=== PATIENT | male | born 1935 | race Caucasian/White ===

== ENCOUNTER 2022-11-29 05:18 | Inpatient (IN) ==
--- NOTE | 2022-11-29 05:34 | Emergency Department Note ---
History of Present Illness General Chief complaint: Chest Pain Stated complaint: CHEST PAIN, PAIN IN MARIUM ARMS, Time Seen by Provider: 11/29/22 05:32 History of Present Illness Maximum Pain Intensity: 10 This 87-year-old male patient presents to the emergency department with his and son for evaluation of chest pain since 4 am this morning. He states that he woke up to go to the bathroom and then the pain started. He reports retrosternal chest pain with radiation into his bilateral arms. He rates the pain as a pressure and 10/10 initially that then improved to 3/10 and then re turned to 7/10. Laying down makes the pain worse. He had a similar episode 3 days ago that resolved after belching multiple times. He has never had chest pain prior to 3 days ago. No history of MO or heart problems other than history of LBBB. He does not follow up with a emergency registrar. Last stress test or ECHO was about 20 years ago. He is adopted and does not know his family history. No heart problems in his children. He has never been a smoker. Drinks one alcoholic beverage a week. He denies any shortness of breath or diaphoresis. Denies any cough, URI symptoms, or fevers. Denies any abdominal pain, nausea, or vomiting. Took 3 Tums for the symptoms without improvement. He is not on aspirin and did not take any aspirin today. He is not on any blood thinners. He is not on any medication for erectile dysfunction. Remote history of GI bleeding many years ago per patient, but he is not very clear on the specifics. Home Medications Medication Instructions Recorded Confirmed Type ascorbic acid (vitamin C) 1,000 mg 1,000 mg PO QAM 03/23/19 10/01/22 History tablet,extended release mecobalamin (vitamin B12) 1,000 1,000 mcg sublingual QAM 03/23/19 10/01/22 History mcg disintegrating tablet,sublingual atorvastatin 10 mg tablet 10 mg PO QAM 10/11/19 10/01/22 History calcium carbonate 600 mg calcium 600 mg PO QAM 10/11/19 10/01/22 History (1,500 mg) tablet cholecalciferol (vitamin D3) 25 1,000 unit PO QAM 10/11/19 10/01/22 History mcg (1,000 unit) capsule (Vitamin D3) diltiazem HCl 180 mg capsule,24 180 mg PO QAM 10/11/19 10/01/22 History hr,extended release lisinopril 20 1 tab PO QAM 10/11/19 10/01/22 History mg-hydrochlorothiazide 25 mg tablet [id number] acid 0.4 1 tab PO QAM 10/11/19 10/01/22 History mg-lycopene 300 mcg-lutein 250 mcg tablet (Centrum Silver) pyridoxine (vitamin B6) 25 mg 25 mg PO DAILY 09/26/20 10/01/22 History tablet acetaminophen 500 mg capsule 500 mg PO Q6H PRN 09/27/21 10/01/22 History Allergies Allergy/AdvReac Type Severity Reaction Status Date / Time No Known Allergies Allergy Verified 10/01/22 14:13 Past Med/Surg History Medical History Chronic back pain Hearing deficit Hyperlipidemia Hypertension Prostate cancer (04/27/02) Rectal bleeding Surgical History History of appendectomy History of colonoscopy with polypectomy History of prostate biopsy x2---malignat: 2001 and then again in 2018 (radiation) History of prostatectomy 2001 History of tonsillectomy and adenoidectomy History of tooth extraction Status post debridement of bone spur x2--bilt feet (hardware in left foot) Status post trigger finger release left hand Family History Other Family history not known due to adoption Social History Smoking Status: Never smoker Second Hand Exposure: Yes (parents smoked); Hx Alcohol Use: Yes Alcohol type: beer, wine and hard liquor Hx Substance Use: No Preferred Language: German Communication Ability: Effective Quality Assurance Qa Lab Analyst Required: No Beliefs That Will Affect Care: [facility] Current Living Situation: Spouse Feels Safe at Home: Yes Assistive Devices: Glasses and Hearing Aid - Bilateral Review of Systems See HPI for pertinent positives & negatives. Physical Exam Vital Signs Vital Signs - 24 hr 11/29/22 05:26 11/29/22 05:53 11/29/22 06:00 Temperature 36.0 C L Temperature Source Temporal Artery Scan Pulse Rate 76 Pulse Rate [Apical] 71 Pulse Rate from SpO2 Sensor Pulse Rhythm Regular Pulse Strength Normal Respiratory Rate 18 13 Respiratory Effort / Characteristics Non-Labored Spontaneous Respiratory Depth Normal Normal Respiratory Pattern Regular Blood Pressure 179/84 H Blood Pressure [Left Arm] 172/91 H Blood Pressure Mean 115 Blood Pressure Mean [Left Arm] 118 Blood Pressure Position Sitting Pulse Oximetry 99 97 97 Oxygen Delivery Method Room Air Room Air Sepsis Recent Fever Within 48 Hours No Sepsis New/Unexplained Change in Mental Status No Sepsis Action Taken by Nursing No Action Required 11/29/22 05:36 11/29/22 05:41 11/29/22 05:41 Temperature Temperature Source Pulse Rate 80 79 Pulse Rate [Apical] Pulse Rate from SpO2 Sensor 75 Pulse Rhythm Pulse Strength Respiratory Rate 21 24 Respiratory Effort / Characteristics Respiratory Depth Respiratory Pattern Blood Pressure 172/91 H Blood Pressure [Left Arm] Blood Pressure Mean 118 Blood Pressure Mean [Left Arm] Blood Pressure Position Pulse Oximetry 98 Oxygen Delivery Method Sepsis Recent Fever Within 48 Hours Sepsis New/Unexplained Change in Mental Status Sepsis Action Taken by Nursing 11/29/22 06:00 11/29/22 06:09 11/29/22 06:09 Temperature Temperature Source Pulse Rate 75 67 Pulse Rate [Apical] Pulse Rate from SpO2 Sensor 73 Pulse Rhythm Pulse Strength Respiratory Rate 18 14 Respiratory Effort / Characteristics Respiratory Depth Respiratory Pattern Blood Pressure 170/82 H Blood Pressure [Left Arm] Blood Pressure Mean 111 Blood Pressure Mean [Left Arm] Blood Pressure Position Pulse Oximetry 98 Oxygen Delivery Method Sepsis Recent Fever Within 48 Hours Sepsis New/Unexplained Change in Mental Status Sepsis Action Taken by Nursing 11/29/22 06:30 11/29/22 06:39 11/29/22 06:50 Temperature Temperature Source Pulse Rate 78 61 72 Pulse Rate [Apical] Pulse Rate from SpO2 Sensor Pulse Rhythm Pulse Strength Respiratory Rate 12 10 L 10 L Respiratory Effort / Characteristics Respiratory Depth Respiratory Pattern Blood Pressure 146/75 H 138/64 120/70 Blood Pressure [Left Arm] Blood Pressure Mean 98 88 86 Blood Pressure Mean [Left Arm] Blood Pressure Position Pulse Oximetry 95 96 Oxygen Delivery Method Sepsis Recent Fever Within 48 Hours Sepsis New/Unexplained Change in Mental Status Sepsis Action Taken by Nursing 11/29/22 07:34 11/29/22 07:55 Temperature Temperature Source Pulse Rate Pulse Rate [Apical] 83 70 Pulse Rate from SpO2 Sensor Pulse Rhythm Pulse Strength Respiratory Rate 18 18 Respiratory Effort / Characteristics Non-Labored Spontaneous Non-Labored Respiratory Depth Normal Normal Respiratory Pattern Regular Regular Blood Pressure Blood Pressure [Left Arm] 132/99 133/89 Blood Pressure Mean Blood Pressure Mean [Left Arm] 110 103 Blood Pressure Position Pulse Oximetry 97 97 Oxygen Delivery Method Room Air Room Air Sepsis Recent Fever Within 48 Hours Sepsis New/Unexplained Change in Mental Status Sepsis Action Taken by Nursing VITALS: Vitals are noted on the nurse's note and reviewed by myself. GENERAL: Non toxic, no acute distress, non-diaphoretic. SKIN: Capillary refill <2 sec. EARS: External auditory canals clear, tympanic membranes pearly strickland without erythema or effusion bilaterally. EYES: PERRLA. EOMI. Conjunctivae without injection, sclerae without icterus. NOSE: Patent without discharge. MOUTH: Mucous membranes moist. Uvula midline. Airway patent. NECK: Supple without nuchal rigidity. HEART: Regular rate and rhythm without murmurs gallops or rubs. LUNGS: Clear to auscultation bilaterally without wheezes, rales or rhonchi. No retractions or accessory muscle use. ABDOMEN: Positive bowel sounds x 4. Normal tympanic percussion. Soft, nontender, without masses or organomegaly. Barrera sign negative. No guarding or rebound tenderness. No focal RLQ or LLQ tenderness. MUSCULOSKELETAL: No gross musculoskeletal defects. NEURO: Patient was alert and oriented to person place and time. No focal neurological deficits. Course Administered Medications Nitroglycerin (Nitroglycerin Sl 0.4 Mg/Tab Tab) 0.4 mg SL UD PRN PRN Reason: Chest Pain Stop: 12/29/22 05:48 Last Admin: 11/29/22 06:48 Dose: 0.4 mg Documented By: Admin: 11/29/22 06:30 Dose: 0.4 mg Documented By: CHRIS Discontinued Medications Aspirin (Aspirin Chew 324 Mg) 324 mg PO NOW STA Stop: 11/29/22 05:50 Last Admin: 11/29/22 05:59 Dose: 324 mg Documented By: CHRIS Fentanyl Citrate (Fentanyl Citrate 100 Mcg/2 Ml Vial) 50 mcg IV NOW STA Stop: 11/29/22 07:00 Last Admin: 11/29/22 07:07 Dose: 50 mcg Documented By: MARGARITO Sodium Chloride (Nss) 500 mls @ 250 mls/hr IV .Q2H STA Stop: 11/29/22 07:48 Last Admin: 11/29/22 05:59 Dose: 250 mls/hr Documented By: CHRIS Ioversol (Optiray 350 100ml) 88 ml IV ONCE ONE Stop: 11/29/22 07:30 Last Admin: 11/29/22 07:29 Dose: 88 ml Documented By: FRANCES Medical Decision Making Differential Diagnosis Differential diagnosis includes angina, MO, pericarditis, myocarditis, aortic dissection, pleurisy, pneumothorax, PE, pneumonia, pneumomediastinum, esophagitis, esophageal spasm, GERD, perforated esophagus, perforated duodenal/gastric ulcer, pancreatitis, cholecystitis, costochondritis, musculoskeletal, bronchitis, URI, or others. Laboratory Data Attestation: I reviewed the patient's lab results. 11/29/22 05:40 11/29/22 05:40 Lab Results 11/29/22 11/29/22 11/29/22 Range/Units 05:40 05:40 05:40 WBC 8.07 (4.8-10.8) K/ul RBC 4.30 L (4.63-6.08) M/uL Hgb 13.8 L (14.0-18.0) g/dl Hct 39.5 L (40.1-51.0) % MCV 91.9 (80.0-100.0) fL MCH 32.1 (25.0-34.0) pg MCHC 34.9 (32.0-36.0) g/dL RDW Std Deviation 44.4 (36.4-46.3) fL RDW Coeff of [place] 13.2 (11.5-14.5) % Plt Count 353 (130-400) K/uL MPV 8.6 L (9.4-12.4) fL Immature Gran % (Auto) 0.5 % Neut % (Auto) 63.0 % Lymph % (Auto) 23.9 % [place] % (Auto) 7.7 % Eos % (Auto) 4.3 % Baso % (Auto) 0.6 % Neut # (Auto) 5.08 (1.4-6.5) K/uL Lymph # (Auto) 1.93 (1.2-3.4) K/uL [place] # (Auto) 0.62 (0.24-0.82) K/uL Eos # (Auto) 0.35 (0-0.50) K/uL Baso # (Auto) 0.05 (0-0.2) K/uL Immature Gran # (Auto) 0.04 H (0.00-0.02) K/uL PT 10.3 (9.0-12.0) Seconds INR 1.0 (0.9-1.1) APTT 25.5 (21.0-31.0) Seconds PTT Ratio 0.9 Sodium 140 (136-145) mmol/L Potassium 3.4 L (3.5-5.1) mmol/L Chloride 104 (98-107) mmol/L Carbon Dioxide 29 (21-32) mmol/L Anion Gap 7 (3-11) BUN 30 H (6-23) mg/dl Creatinine 1.31 (0.6-1.4) mg/dl Est Cr Clr Drug Dosing 36.7 ml/min Est GFR ( Amer) 57.1 ml/min Est GFR (Non-Af Amer) 49.3 ml/min BUN/Creatinine Ratio 22.9 H (10-20) Glucose 122 H (70-99(Fasting)) mg/dl Calcium 9.9 (8.5-10.1) mg/dl Total Bilirubin 0.6 (0.2-1.0) mg/dl AST 20 (13-39) U/L ALT 15 (7-52) U/L Alkaline Phosphatase 66 (34-104) U/L Troponin I High Sens 674.3 H* (0-20) pg/ml Total Protein 7.5 (6.0-8.3) gm/dl Albumin 4.1 (3.4-5.0) gm/dl Globulin 3.4 (2.5-4.0) gm/dl Albumin/Globulin Ratio 1.2 (0.9-2) Lipase 73 (11-82) U/L Urine Color Urine Appearance (Clear) Urine pH (4.5-7.5) Ur Specific [place] (1.000-1.030) Urine Protein (Negative) Urine Glucose (UA) (Negative) Urine Ketones (Negative) Urine Blood (Negative) Urine Nitrite (Negative) Urine Bilirubin (Negative) Urine Urobilinogen (Negative) Ur Leukocyte Esterase (Negative) Urine WBC (Auto) (0-5) /hpf Urine RBC (Auto) (0-4) /hpf U Hyaline Cast (Auto) (0-5) /lpf U Epithel Cells (Auto) (0-5) /lpf Urine Bacteria (Auto) (Negative) SARS-CoV-2, RNA, NAAT (NEGATIVE) 11/29/22 11/29/22 Range/Units 06:03 06:29 WBC (4.8-10.8) K/ul RBC (4.63-6.08) M/uL Hgb (14.0-18.0) g/dl Hct (40.1-51.0) % MCV (80.0-100.0) fL MCH (25.0-34.0) pg MCHC (32.0-36.0) g/dL RDW Std Deviation (36.4-46.3) fL RDW Coeff of [place] (11.5-14.5) % Plt Count (130-400) K/uL MPV (9.4-12.4) fL Immature Gran % (Auto) % Neut % (Auto) % Lymph % (Auto) % [place] % (Auto) % Eos % (Auto) % Baso % (Auto) % Neut # (Auto) (1.4-6.5) K/uL Lymph # (Auto) (1.2-3.4) K/uL [place] # (Auto) (0.24-0.82) K/uL Eos # (Auto) (0-0.50) K/uL Baso # (Auto) (0-0.2) K/uL Immature Gran # (Auto) (0.00-0.02) K/uL PT (9.0-12.0) Seconds INR (0.9-1.1) APTT (21.0-31.0) Seconds PTT Ratio Sodium (136-145) mmol/L Potassium (3.5-5.1) mmol/L Chloride (98-107) mmol/L Carbon Dioxide (21-32) mmol/L Anion Gap (3-11) BUN (6-23) mg/dl Creatinine (0.6-1.4) mg/dl Est Cr Clr Drug Dosing ml/min Est GFR ( Amer) ml/min Est GFR (Non-Af Amer) ml/min BUN/Creatinine Ratio (10-20) Glucose (70-99(Fasting)) mg/dl Calcium (8.5-10.1) mg/dl Total Bilirubin (0.2-1.0) mg/dl AST (13-39) U/L ALT (7-52) U/L Alkaline Phosphatase (34-104) U/L Troponin I High Sens (0-20) pg/ml Total Protein (6.0-8.3) gm/dl Albumin (3.4-5.0) gm/dl Globulin (2.5-4.0) gm/dl Albumin/Globulin Ratio (0.9-2) Lipase (11-82) U/L Urine Color Yellow Urine Appearance Clear (Clear) Urine pH 7.0 (4.5-7.5) Ur Specific [place] 1.017 (1.000-1.030) Urine Protein 2+ H (Negative) Urine Glucose (UA) Negative (Negative) Urine Ketones Negative (Negative) Urine Blood Negative (Negative) Urine Nitrite Negative (Negative) Urine Bilirubin Negative (Negative) Urine Urobilinogen Negative (Negative) Ur Leukocyte Esterase Negative (Negative) Urine WBC (Auto) 1-5 (0-5) /hpf Urine RBC (Auto) 0-4 (0-4) /hpf U Hyaline Cast (Auto) 1-5 (0-5) /lpf U Epithel Cells (Auto) 5-10 H (0-5) /lpf Urine Bacteria (Auto) Negative (Negative) SARS-CoV-2, RNA, NAAT NEGATIVE (NEGATIVE) Imaging Data Radiologist's Impression: Chest X-Ray 11/29/22 05:49 XR chest 1V portable CLINICAL HISTORY: Chest pain, nonspecific COMPARISON STUDY: PET/CT April 06, 2018. FINDINGS: Lung volumes are normal. Lungs are clear. There is no pneumothorax or pleural effusion. Cardiac size is normal. Mediastinal contours are normal. There is no evidence for pulmonary edema. Incidental note is made of severe bilateral glenohumeral joint osteoarthritis. IMPRESSION: No acute cardiopulmonary findings. ACT 112: Negative or not required by law. Electronically signed by: Jose Vasquez M.D. 11/29/2022 7:[address] 11/29/22 06:35 CT OF THE CHEST WITH IV CONTRAST CLINICAL HISTORY: chest pain, abnormal CXR COMPARISON STUDY: PET/CT April 06, 2018. TECHNIQUE: Following IV administration of 88 mL of Optiray, helical axial images of the chest were obtained. Sagittal and coronal reconstructions were viewed as well as maximal intensity projections on an independent 3-D workstation. Automated exposure control was utilized for the study. A dose lowering technique was utilized adhering to the principles of ALARA. CT DOSE: 640.73 mGy.cm FINDINGS: There is no thoracic aortic dissection. Mild cardiomegaly is noted. Note is made of hypoenhancement of the interventricular septum, left ventricular apex and distal free wall. There is no pericardial effusion. No central pulmonary embolus. No pneumothorax or pleural effusion is present. There is no consolidation to suggest pneumonia. A few small right lower lobe pulmonary nodules are unchanged since CT of April 06, 2018. A sclerotic lesion within the left scapular tip has slightly increased since prior PET/CT. This is indeterminate. There is a lateral segment hepatic cyst. Gallstones within the ga llbladder noted. Gallbladder is partially imaged. IMPRESSION: 1. Hypoenhancement of the interventricular septum and left ventricular apex and distal free wall. This could be correlated with cardiac enzymes to exclude acute myocardial infarction. 2. No consolidation to suggest pneumonia. 3. Cholelithiasis. ACT 112: Negative or not required by law. Electronically signed by: Jose Vaqsuez M.D. 11/29/2022 7:46 AM MDM Narrative I examined the patient along with Dr. Cote who examined the patient as well and was involved in the patient's care. An IV lock was placed and labs were drawn. He was started on normal saline solution at 250 mL/h. He was given aspirin 324 mg p.o. chewed as well as sublingual nitroglycerin. Continuous bender helper: Order was placed for continuous bender helper. Patient was placed on the bender helper and continuous pulse ox. Patient was noted to be in sinus rhythm at an initial rate of 70 bpm per my interpretation. EKG was interpreted by myself and Dr. Cote and showed sinus rhythm with first-degree AV block with occasional PVCs and bigeminy with a left bundle branch block. It is difficult to interpret because of the left bundle branch block, but there does appear to be 3 [address] segment elevation more notable in leads V2 and V3. The patient does not have any old EKGs in our electronic medical records to compare. Chest x-ray as interpreted by myself and Dr. Cote with showed concern for abnormality superiorly and to the right side of the mediastinum. Radiology report is still pending. CT scan of the chest with contrast was ordered. Hemoglobin 13.8, hematocrit 39.5. Coags were normal. Potassium 3.4, BUN 30, glucose 122, but CMP and lipase otherwise unremarkable. Troponin was elevated at 674.3. Urinalysis negative for UTI. COVID-negative. The patient had no improvement after the first dose of nitroglycerin and was given a second dose of nitroglycerin sublingual with careful monitoring of his blood pressure and vital signs. We were able to get an old EKG off of the [facility] system from June 2020 and there does appear to be 2 to 3 mm more elevation of the ST segments today than his previous EKG. Repeat EKG was interpreted by myself and Dr. Cote and showed no significant changes from the first EKG, but did still show the ST segment elevation. He was then given fentanyl 50 mcg IV and cardiology was contacted. Dr. Hunt presented to the emergency department and examined the patient and performed a bedside echo. There was cardiac wall motion abnormality concerning for acute MO within the LAD distrib ution. A heart alert was then initiated and the patient was taken to the [facility]. Please refer to cardiology's notes for further details. The patient was taken to the [facility] in stable condition. After heart alert was initiated the patient's CT scan of the chest was read by radiology as hypoenhancement of the interventricular septum and left ventricular apex and distal free wall. This could be correlated with cardiac enzymes to exclude acute myocardial infarction. No consolidation to suggest pneumonia. Cholelithiasis. I have personally spent 75 minutes of critical care time in the direct management of this patient. This includes bedside care, interpretation of diagnostic studies, and testing, discussion with consultants, patient, and family members, and other required patient management activities. This 75 minutes is in excess of all separately billable procedures. Impression & Plan ST elevation (STEMI) myocardial infarction involving left anterior descending coronary artery Discharge Plan Visit Data Chief Complaint: Chest Pain Stated Complaint: CHEST PAIN, PAIN IN MARIUM ARMS, ED Provider: Pat Cote ED Midlevel Provider: Jess Le Discharge Problem: ST elevation (STEMI) myocardial infarction involving left anterior descending coronary artery Patient Disposition: Admitted As Inpatient Condition: Good Discharge Instructions Interventions: ED Discharge Assessment Last Done: 11/29/22 08:09 Forms Stand Alone Forms: My [facility] Prescriptions Prescriptions: No Action mecobalamin (vitamin B12) 1,000 mcg tablet,disintegrating 1,000 mcg SL QAM ascorbic acid (vitamin C) 1,000 mg tablet extended release 1,000 mg PO QAM pyridoxine (vitamin B6) 25 mg tablet 25 mg PO DAILY acetaminophen 500 mg capsule 500 mg PO Q6H PRN diltiazem HCl 180 mg Capsule,Extended Release 24 Hr 180 mg PO QAM atorvastatin 10 mg Tablet 10 mg PO QAM calcium carbonate 600 mg calcium (1,500 mg) Tablet 600 mg PO QAM lisinopril-hydrochlorothiazide 20-25 mg Tablet 1 tab PO QAM cholecalciferol (vitamin D3) [Vitamin D3] 1,000 unit Capsule 1,000 unit PO QAM Centrum Silver 0.4-300-250 mg-mcg-mcg Tablet 1 tab PO QAM Referrals Referrals: Ciro Santana MD [Primary Care Provider] -
[2022-11-29] MEDS ORDERED: SODIUM CHLORIDE 0.9% 500 ML IV STA (05:49)
[2022-11-29] MEDS ORDERED: ASPIRIN CHEW 324 MG PO STA (05:49)
[2022-11-29 06:15] LABS: Basophils # (auto) 0.05 K/uL (0-0.2); Basophils % (auto) 0.6 %; Eosinophils # (auto) 0.35 K/uL (0-0.50); Eosinophils % (auto) 4.3 %; Hematocrit (blood only) 39.5 % (40.1-51.0); Hemoglobin 13.8 g/dl (14.0-18.0); Immature Granulocytes # (auto) 0.04 K/uL (0.00-0.02); Immature Granulocytes % (auto) 0.5 %; Lymphocytes # (auto) 1.93 K/uL (1.2-3.4); Lymphocytes % (auto) 23.9 %; Mean Corpuscular Hemoglobin 32.1 pg (25.0-34.0); Mean Corpuscular Hgb Conc 34.9 g/dL (32.0-36.0); Mean Corpuscular Volume 91.9 fL (80.0-100.0); Mean Platelet Volume 8.6 fL (9.4-12.4); Monocytes # (auto) 0.62 K/uL (0.24-0.82); Monocytes % (auto) 7.7 %; Neutrophils # (auto) 5.08 K/uL (1.4-6.5); Platelet Count 353 K/uL (130-400); RDW Coefficient of Variation 13.2 % (11.5-14.5); RDW Standard Deviation 44.4 fL (36.4-46.3); White Blood Count 8.07 K/ul (4.8-10.8)
[2022-11-29 06:18] LABS: Partial Thromboplastin Ratio 0.9; Partial Thromboplastin Time 25.5 Seconds (21.0-31.0); Prothrombin Time 10.3 Seconds (9.0-12.0)
[2022-11-29] MEDS: NITROGLYCERIN SL 0.4 MG/TAB TAB SL PRN ×2 (06:30→06:48)
[2022-11-29 06:32] LABS: Albumin Globulin Ratio 1.2 (0.9-2); Albumin Level 4.1 gm/dl (3.4-5.0); BUN Creatinine Ratio 22.9 (10-20); Bilirubin,Total 0.6 mg/dl (0.2-1.0); Calcium 9.9 mg/dl (8.5-10.1); Creatinine Clr Calc Pharmacy 36.7 ml/min; Est GFR (African American) 57.1 ml/min; Est GFR (Non-African American) 49.3 ml/min; Globulin 3.4 gm/dl (2.5-4.0); Potassium 3.4 mmol/L (3.5-5.1); Total Protein 7.5 gm/dl (6.0-8.3)
[2022-11-29 06:37] LABS: Troponin I High Sensitivity 674.3 pg/ml (0-20)
[2022-11-29] MEDS ORDERED: fentaNYL citrate 100 MCG/2 ML VIAL IV STA (06:59)
--- NOTE | 2022-11-29 07:09 | XRay Report ---
XR chest 1V portable CLINICAL HISTORY: Chest pain, nonspecific COMPARISON STUDY: PET/CT April 06, 2018. FINDINGS: Lung volumes are normal. Lungs are clear. There is no pneumothorax or pleural effusion. Car diac size is normal. Mediastinal contours are normal. There is no evidence for pulmonary edema. Incid ental note is made of severe bilateral glenohumeral joint osteoarthritis. IMPRESSION: No acute cardiopulmonary findings. ACT 112: Negative or not required by law. Electronically signed by: Jose Vasquez M.D. 11/29/2022 7:08 AM
[2022-11-29 07:26] LABS: Appearance Urine Clear (Clear); Bacteria Urine Automated Negative (Negative); Bilirubin Urine Negative (Negative); Blood Urine Negative (Negative); Color Urine Yellow; Glucose Urine UA Negative (Negative); Ketones Urine Negative (Negative); Leukocyte Esterase Urine Negative (Negative); Nitrite Urine Negative (Negative); Protein Urine 2+ (Negative); RBC Urine Automated 0-4 /hpf (0-4); Specific Gravity Urine 1.017 (1.000-1.030); Urobilinogen Urine Negative (Negative)
[2022-11-29] MEDS ORDERED: OPTIRAY 350 100ml IV ONE (07:29)
[2022-11-29] MEDS ORDERED: niCARdipine HCL INJ 2.5 MG/ML 10 ML AMP ONE (07:47)
[2022-11-29] MEDS ORDERED: MIDAZOLAM HCL 1 MG/ML 2ML VIAL ONE ×3 (07:47→09:24)
[2022-11-29] MEDS ORDERED: fentaNYL citrate 100 MCG/2 ML VIAL ONE ×2 (07:47→09:24)
[2022-11-29] MEDS ORDERED: HEPARIN (PORCINE) 1000 UNIT/ML 10 ML (CATH LAB USE ONLY) ONE ×2 (07:47→08:25)
[2022-11-29] MEDS ORDERED: NITROGLYCERIN/D5W 100MCG/ML 20ML SYR ONE (07:48)
--- NOTE | 2022-11-29 07:48 | CT Scan Report ---
CT OF THE CHEST WITH IV CONTRAST CLINICAL HISTORY: chest pain, abnormal CXR COMPARISON STUDY: PET/CT April 06, 2018. TECHNIQUE: Following IV administration of 88 mL of Optiray, helical axial images of the chest were o btained. Sagittal and coronal reconstructions were viewed as well as maximal intensity projections o n an independent 3-D workstation. Automated exposure control was utilized for the study. A dose low ering technique was utilized adhering to the principles of ALARA. CT DOSE: 640.73 mGy.cm FINDINGS: There is no thoracic aortic dissection. Mild cardiomegaly is noted. Note is made of hypoen hancement of the interventricular septum, left ventricular apex and distal free wall. There is no per icardial effusion. No central pulmonary embolus. No pneumothorax or pleural effusion is present. Ther e is no consolidation to suggest pneumonia. A few small right lower lobe pulmonary nodules are unchan ged since CT of April 06, 2018. A sclerotic lesion within the left scapular tip has slightly increased since prior PET/CT. This is indeterminate. There is a lateral segment hepatic cyst. Gallstones within the gallbladder noted. Gallbladder is partially imaged. IMPRESSION: 1. Hypoenhancement of the interventricular septum and left ventricular apex and distal free wall. Thi s could be correlated with cardiac enzymes to exclude acute myocardial infarction. 2. No consolidation to suggest pneumonia. 3. Cholelithiasis. ACT 112: Negative or not required by law. Electronically signed by: Jose Vasquez M.D. 11/29/2022 7:46 AM
--- NOTE | 2022-11-29 07:55 | Emergency Department Note ---
ED Visit Note I was consulted by the Advanced Practice Provider. I saw the patient personally and performed a substantive portion of the visit. This includes aspects of the HPI, MDM, diagnostic interpretations, and disposition/plan. I discussed the case with cardiology-Dr. Hunt on the phone and at the bedside .
--- NOTE | 2022-11-29 07:56 | Cardiology Consultation ---
Date of Consultation November 29, 2022 Assessment & Plan (1) ST elevation (STEMI) myocardial infarction involving left anterior descending coronary artery: Plan Results of bedside echocardiogram discussed with patient and family. Heart alert called and Paper Tester activated for urgent coronary angiography. Risk, benefits, and alternatives to procedure discussed. IV heparin will be initiated in the Paper Tester. Further recommendations pending result of coronary angiography and intervention. History of Present Illness Reason for Consultation: Chest pain, LBBB, elevated troponin Requesting Physician: Dr. Cote Attending Physician: Dr. Cote History of Present Illness 87-year-old patient presented to the emergency department with chest discomfort. Pain began at approximately 4 AM and described as a severe tightness. 10/03 at its worst. Currently down to 7/10. He is received sublingual nitroglycerin in the ER. I was contacted by the emergency department due to concerns regarding left bundle branch block and ongoing chest pain. Patient seen examined at the bedside. Describes 7/10 chest discomfort currently. Stat bedside echocardiogram performed during examination demonstrating anterior, anteroseptal, and apical hypokinesis to akinesis. Heart alert called to activate Paper Tester. Allergies Allergy/AdvReac Type Severity Reaction Status Date / Time No Known Allergies Allergy Verified 10/01/22 14:13 Home Medications Medication Instructions Recorded Confirmed Type ascorbic acid (vitamin C) 1,000 mg 1,000 mg PO QAM 03/23/19 10/01/22 History tablet,extended release mecobalamin (vitamin B12) 1,000 1,000 mcg sublingual QAM 03/23/19 10/01/22 History mcg disintegrating tablet,sublingual atorvastatin 10 mg tablet 10 mg PO QAM 10/11/19 10/01/22 History calcium carbonate 600 mg calcium 600 mg PO QAM 10/11/19 10/01/22 History (1,500 mg) tablet cholecalciferol (vitamin D3) 25 1,000 unit PO QAM 10/11/19 10/01/22 History mcg (1,000 unit) capsule (Vitamin D3) diltiazem HCl 180 mg capsule,24 180 mg PO QAM 10/11/19 10/01/22 History hr,extended release lisinopril 20 1 tab PO QAM 10/11/19 10/01/22 History mg-hydrochlorothiazide 25 mg tablet ipjwnidb-vwo-jaqxb acid 0.4 1 tab PO QAM 10/11/19 10/01/22 History mg-lycopene 300 mcg-lutein 250 mcg tablet (Centrum Silver) pyridoxine (vitamin B6) 25 mg 25 mg PO DAILY 09/26/20 10/01/22 History tablet acetaminophen 500 mg capsule 500 mg PO Q6H PRN 09/27/21 10/01/22 History Patient History Medical History Chronic back pain Hearing deficit Hyperlipidemia Hypertension Prostate cancer (04/27/02) Rectal bleeding Surgical History History of appendectomy History of colonoscopy with polypectomy History of prostate biopsy x2---malignat: 2001 and then again in 2018 (radiation) History of prostatectomy 2001 History of tonsillectomy and adenoidectomy History of tooth extraction Status post debridement of bone spur x2--bilt feet (hardware in left foot) Status post trigger finger release left hand Family History Other Family history not known due to adoption Social History Smoking Status: Never smoker Second Hand Exposure: Yes (parents smoked); Hx Alcohol Use: Yes Alcohol type: beer, wine and hard liquor Hx Substance Use: No Preferred Language: Afghan Communication Ability: Effective Head Of Marketing Analytics Required: No Beliefs That Will Affect Care: None Current Living Situation: Spouse Feels Safe at Home: Yes Assistive Devices: Glasses and Hearing Aid - Bilateral Review of Systems Review of Systems: All systems reviewed & are unremarkable except as noted in Subjective Physical Exam Constitutional: well developed and + thin; not ill appearing Respiratory: normal respiratory effort; no respiratory distress, no labored breathing and no retractions Auscultation: no crackles, no rales, no rhonchi and no wheezes Cardiovascular: Rate/Rhythm: regular rate and regular rhythm Heart Sounds: normal S1 and normal S2; no murmur Vessels: radial pulses present; no JVD and no carotid bruit Extremities: no edema Gastrointestinal (Abdomen): Inspection/Auscultation: normal bowel sounds; abdomen not distended Percussion/Palpation: abdomen soft; abdomen nontender, no guarding and abdomen not rigid Neurologic: CN's II-XI intact bilaterally and moves all extremities; no focal motor deficits Motor/Sensory: no tremor Psychiatric: A+Ox3, euthymic affect Results & Data ([facility]) Vital Signs (Past 12 Hours) Vital Signs Temp Pulse Pulse Resp BP BP Pulse Ox 11/29/22 07:34 83 18 132/99 97 11/29/22 06:50 72 10 L 120/70 96 11/29/22 06:39 61 10 L 138/64 95 11/29/22 06:30 78 12 146/75 H 11/29/22 06:09 67 14 11/29/22 06:09 170/82 H 11/29/22 06:00 75 18 98 11/29/22 05:41 79 24 98 11/29/22 05:41 172/91 H 11/29/22 05:36 80 21 11/29/22 06:00 71 13 172/91 H 97 11/29/22 05:53 97 11/29/22 05:26 36.0 C L 76 18 179/84 H 99 O2 Del Method 11/29/22 07:34 Room Air 11/29/22 06:50 11/29/22 06:39 11/29/22 06:30 11/29/22 06:09 11/29/22 06:09 11/29/22 06:00 11/29/22 05:41 11/29/22 05:41 11/29/22 05:36 11/29/22 06:00 11/29/22 05:53 Room Air 11/29/22 05:26 Room Air
[2022-11-29] MEDS ORDERED: TICAGRELOR 90 MG TAB ONE (08:13)
--- NOTE | 2022-11-29 08:14 | Pre Anesthesia Assessment ---
Date of Service November 29, 2022 Pre Sedation Assessment Vital Signs Temp Pulse Pulse Resp BP BP Pulse Ox 11/29/22 07:55 70 18 133/89 97 11/29/22 07:34 83 18 132/99 97 11/29/22 06:50 72 10 L 120/70 96 11/29/22 06:39 61 10 L 138/64 95 11/29/22 06:30 78 12 146/75 H 11/29/22 06:09 67 14 11/29/22 06:09 170/82 H 11/29/22 06:00 75 18 98 11/29/22 05:41 79 24 98 11/29/22 05:41 172/91 H 11/29/22 05:36 80 21 11/29/22 06:00 71 13 172/91 H 97 11/29/22 05:53 97 11/29/22 05:26 96.8 F L 76 18 179/84 H 99 O2 Del Method 11/29/22 07:55 Room Air 11/29/22 07:34 Room Air 11/29/22 06:50 11/29/22 06:39 11/29/22 06:30 11/29/22 06:09 11/29/22 06:09 11/29/22 06:00 11/29/22 05:41 11/29/22 05:41 11/29/22 05:36 11/29/22 06:00 11/29/22 05:53 Room Air 11/29/22 05:26 Room Air Cardiovascular RRR, no murmur, no edema Respiratory normal respiratory effort, lungs clear to auscultation Pre-Sedation Airway Assessment Smoking Status: Never smoker Hx Sleep Apnea: No Hx Difficult Intubation: No Short, Thick Neck: No Thyromental Distance: > or= 3.5 Finger Breadths Oral Cavity: + WNL Mallampati Class: III ASA: ASA4 Procedure Planning Contraindications for Sedation: none Current Medications Reviewed: Yes Notes The planned sedation has been discussed with the patient. Informed Consent was o btained. I have identified the patient, determined the appropriateness of sedation and have assessed the patient immediately prior to the procedure. All medicine(s) and interventions are by my order.
[2022-11-29] MEDS ORDERED: AMIODARONE HCL INJ 50 MG/ML 3 ML VIAL (CATH LAB USE ONLY) IV ONE (08:24)
[2022-11-29] MEDS ORDERED: EPTIFIBATIDE 0.75 MG/ML 75MG VIAL (CATH LAB USE ONLY) IV ONE (09:15)
[2022-11-29] MEDS ORDERED: EPTIFIBATIDE 2 MG/ML 10 ML VIAL (CATH LAB USE ONLY) IV ONE (09:15)
--- NOTE | 2022-11-29 09:59 | Post Anesthesia Assessment ---
Date of Service November 29, 2022 Post Sedation Assessment Vital Signs Temp Pulse Pulse Resp BP BP Pulse Ox 11/29/22 07:55 70 18 133/89 97 11/29/22 07:34 83 18 132/99 97 11/29/22 06:50 72 10 L 120/70 96 11/29/22 06:39 61 10 L 138/64 95 11/29/22 06:30 78 12 146/75 H 11/29/22 06:09 67 14 11/29/22 06:09 170/82 H 11/29/22 06:00 75 18 98 11/29/22 05:41 79 24 98 11/29/22 05:41 172/91 H 11/29/22 05:36 80 21 11/29/22 06:00 71 13 172/91 H 97 11/29/22 05:53 97 11/29/22 05:26 96.8 F L 76 18 179/84 H 99 O2 Del Method 11/29/22 07:55 Room Air 11/29/22 07:34 Room Air 11/29/22 06:50 11/29/22 06:39 11/29/22 06:30 11/29/22 06:09 11/29/22 06:09 11/29/22 06:00 11/29/22 05:41 11/29/22 05:41 11/29/22 05:36 11/29/22 06:00 11/29/22 05:53 Room Air 11/29/22 05:26 Room Air Recovery Score Activity: Moves 4 extremities Respiration: Deep Breath/Cough Circulation: +/-20% PreAnes Value Consciousness: Fully Awake Oxygen Saturation: O2 needed for >90% Discharge Sedation Level of Care: Fast Track Phase II Post Sedation Plan On clinical assessment, the patient appears to have tolerated the sedation without complications. Patient is recovering as anticipated. Patient will continue to be monitored by nursing and may be discharged when sedation discharge criteria are met per below protocol. Upon Completions of procedure up to 15 minutes continue every 5 minute vital signs and the P.A.R. score; then discharge to a Phase I or Fast Track to Phase II per the following guidelines: * Discharge Patient to appropriate Phase II area if PAR is 8 or greater or return to pre- procedure baseline. The post - procedure orders will be as directed. * If PAR score is less than 8 or not return to pre-procedure baseline then patient will follow Phase I monitoring till PAR is reached for Phase II. The Phase I may be done in procedure room or may call to secure a Phase I area. * If naloxone or flumazenil are used for reversal, hold in Phase I for continued monitoring from when last reversal dose was given for a minimum of 60 minutes or longer pending the nurse and/or physician discretion of patient condition before discharge to Phase II. Please call the Sedation Physician to re-evaluate and complete post-note for discharge to Phase II area. Do NOT discharge from procedure sedation or Phase 1 until post- sedation evaluation note is complete by procedure /sedation MD Sedation Discharge Instructions to be given to the patient at discharge to home.
[2022-11-29] MEDS ORDERED: ONDANSETRON INJ 2 MG/ML 2 ML VIAL IV PRN (10:01)
[2022-11-29] MEDS ORDERED: STAT IV Infusion **Titration per Protocol STA (10:01)
[2022-11-29] MEDS ORDERED: EPTIFIBATIDE BOLUS/DRIP IV STA (10:01)
[2022-11-29] MEDS ORDERED: ACETAMINOPHEN 325 MG TAB PO PRN (10:01)
--- NOTE | 2022-11-29 10:14 | History & Physical Report ---
Date of Service November 29, 2022 Assessment & Plan (1) ST elevation (STEMI) myocardial infarction involving left anterior de scending coronary artery: (2) CAD (coronary artery disease): (3) Hypertension: (4) Hyperlipidemia: (5) S/P cardiac catheterization: Plan: - Admit the patient to the ICU - s/p Heart alert called and pt underwent cardiac catheterization today, 11/29/2022, sp stenting x 2 in the LAD and x1 in the distal circumflex - Will hold home medications including diltiazem and lisinopril/hctz for HTN - Loaded with Integrilin, continue Brilinta 90 mg BID - start losartan 25 mg daily, atorvastatin 40 mg daily, baby aspirin daily, metoprolol tartrate 12.5 mg BID - AM labs include lipids, al1c, cbc w diff and BMP - Consult cardiology, Dr. Hunt - Pt has tremor during conversation - reports no history of such, somewhat cold but also possible side effect of anesthesia used for procedure. Monitor. DVT PPx: - teds, scds CODE: Full code-discussed with the patient, his , son and daughter at bedside Dispo: From home, likely to remain in the hospital x 1-2 days History of Present Illness Chief Complaint: Chest pain Primary Care Provider: Ciro Santana MD This is an 87-year-old male with PMHx of HTN, HLD, remote history of colon, prostate & skin cancer, CKD stage III, who presented to the ER with acute onset of chest pain which began around 4 AM which he initially rated as an 11/10. He got up in the middle the night to use the bathroom as he normally does however felt significant amount of chest pain and pressure at that time. It radiated down both of his arms. Denies any diaphoresis or shortness of breath at that time. Patient admits that earlier this week on Friday night he had a similar thing happen but the pain was not as significant. Pain was relieved by resting and belching, and was gone within 30 minutes. After receiving a dose of sublingual nitro in the ER his pain slightly improved. Bedside echocardiogram was performed by bacteriologist industrial in the ER which showed anterior, anterior septal, and apical hypokinesis to akinesis. On EKG had newfound left bundle branch block. Heart alert was called and the patient was taken to the cardiac Huc. He underwent TRINI placement x2 to the LAD, and another TRINI in the distal circumflex. He currently rates his chest pain as a 7/10 after cardiac catheterization. He is shaking throughout our conversation, reports that he does not have a history of a tremor. He is a little bit cold. Denies any radiation of pain down the arms. He denies any shortness of breath. Patient admits that he stopped taking baby aspirin approximately 6 months ago. He has been taking his vitamins, diltiazem and lisinopril/HCTZ as directed. Allergies Allergy/AdvReac Type Severity Reaction Status Date / Time No Known Allergies Allergy Verified 10/01/22 14:13 Home Medications Medication Instructions Recorded Confirmed Type atorvastatin 10 mg tablet 10 mg PO QAM 10/11/19 11/29/22 History calcium carbonate 600 mg calcium 600 mg PO QAM 10/11/19 11/29/22 History (1,500 mg) tablet cholecalciferol (vitamin D3) 25 1,000 unit PO QAM 10/11/19 11/29/22 History mcg (1,000 unit) capsule (Vitamin D3) diltiazem HCl 180 mg capsule,24 180 mg PO QAM 10/11/19 11/29/22 History hr,extended release lisinopril 20 1 tab PO QAM 10/11/19 11/29/22 History mg-hydrochlorothiazide 25 mg tablet gmgbjbzt-rci-okjmj acid 0.4 1 tab PO QAM 10/11/19 11/29/22 History mg-lycopene 300 mcg-lutein 250 mcg tablet (Centrum Silver) pyridoxine (vitamin B6) 25 mg 25 mg PO DAILY 09/26/20 11/29/22 History tablet ascorbic acid (vitamin C) 500 mg 500 mg PO DAILY 11/29/22 11/29/22 History capsule,extended release (Vitamin C) cyanocobalamin (vitamin B-12) 1,000 mcg PO DAILY 11/29/22 11/29/22 History 1,000 mcg tablet (Vitamin B-12) zinc 50 mg capsule 50 mg PO DAILY 11/29/22 11/29/22 History Past Med/Surg History Medical History (Updated 11/29/22 @ 10:20 by Cierra Blair PA-C) Chronic back pain Hearing deficit Hyperlipidemia Hypertension Prostate cancer (04/27/02) Rectal bleeding Surgical History (Updated 11/29/22 @ 10:20 by Cierra Blair PA-C) History of appendectomy History of colonoscopy with polypectomy History of prostate biopsy x2---malignat: 2001 and then again in 2018 (radiation) History of prostatectomy 2001 History of tonsillectomy and adenoidectomy History of tooth extraction Status post debridement of bone spur x2--bilt feet (hardware in left foot) Status post trigger finger release left hand Family History Other Family history not known due to adoption Social History Smoking Status: Never smoker Second Hand Exposure: Yes (parents smoked); Hx Alcohol Use: Yes Alcohol type: beer, wine and hard liquor Hx Substance Use: No Preferred Language: [place] Communication Ability: Effective Military Equipment Specialist Required: No Beliefs That Will Affect Care: Muslim Current Living Situation: Spouse Feels Safe at Home: Yes Assistive Devices: Glasses and Hearing Aid - Bilateral Review of Systems Review of Systems: Constitutional: No fever, sweats or chills Eyes: No diplopia, no worsening or blurred vision ENT: normal hearing, no trouble swallowing Respiratory: No cough, sputum, dyspnea at rest or on exertion, admits that he has not done much walking since having 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 Cardiovascular: As per HPI Abdomen: No pain, nausea, vomiting, diarrhea or constipation Musculoskeletal: No joint pain, calf pain, swelling Neurologic: No weakness, numbness/tingling, or balance problems. He does not use ambulatory device at baseline Psychiatric: No anxiety or depression Skin: No rash or itch Physical Exam Physical Exam: General: awake, alert, no apparent distress, + diffuse mild tremor Head: Normocephalic, atraumatic ENT: PERRL, EOMI, no pharyngeal exudate, mucous membranes moist Chest: Clear to auscultation, on room air, no adventitious breath sounds Cardiac: Regular rate and rhythm, no murmur, no JVD, normal peripheral pulses, good capillary refill Abdominal: NABS x 4 quadrants, soft, nondistended, nontender to palpation, no rebound or guarding Extremities: R TR band in place. + S/p TKA scars well healed bilaterally, Otherwise normal inspection, no peripheral edema or erythema, calfs nontender to palpation Psych: Normal mood and affect Neuro: AAO x 3, strength intact bilaterally and rated 5/5, no motor deficits, speech is clear, no peripheral sensory deficits Results & Data Results & Data ([facility]) Vital Signs (Past 12 Hours) Vital Signs Temp Pulse Pulse Resp BP BP Pulse Ox 11/29/22 07:55 70 18 133/89 97 11/29/22 07:34 83 18 132/99 97 11/29/22 06:50 72 10 L 120/70 96 11/29/22 06:39 61 10 L 138/64 95 11/29/22 06:30 78 12 146/75 H 11/29/22 06:09 67 14 11/29/22 06:09 170/82 H 11/29/22 06:00 75 18 98 11/29/22 05:41 79 24 98 11/29/22 05:41 172/91 H 11/29/22 05:36 80 21 11/29/22 06:00 71 13 172/91 H 97 11/29/22 05:53 97 11/29/22 05:26 36.0 C L 76 18 179/84 H 99 O2 Del Method 11/29/22 07:55 Room Air 11/29/22 07:34 Room Air 11/29/22 06:50 11/29/22 06:39 11/29/22 06:30 11/29/22 06:09 11/29/22 06:09 11/29/22 06:00 11/29/22 05:41 11/29/22 05:41 11/29/22 05:36 11/29/22 06:00 11/29/22 05:53 Room Air 11/29/22 05:26 Room Air Laboratory Results 11/29/22 11/29/22 11/29/22 09:23 09:00 08:33 WBC RBC Hgb Hct MCV MCH MCHC RDW Std Deviation RDW Coeff of [place] Plt Count MPV Immature Gran % (Auto) Neut % (Auto) Lymph % (Auto) [place]iken % (Auto) Eos % (Auto) Baso % (Auto) Neut # (Auto) Lymph # (Auto) [place]iken # (Auto) Eos # (Auto) Baso # (Auto) Immature Gran # (Auto) PT INR APTT PTT Ratio Activ Coag Time Kaolin 323 H 311 H 293 H Sodium Potassium Chloride Carbon Dioxide Anion Gap BUN Creatinine Est Cr Clr Drug Dosing Est GFR ( Amer) Est GFR (Non-Af Amer) BUN/Creatinine Ratio Glucose Calcium Total Bilirubin AST ALT Alkaline Phosphatase Troponin I High Sens Total Protein Albumin Globulin Albumin/Globulin Ratio Lipase Urine Color Urine Appearance Urine pH Ur Specific [place] Urine Protein Urine Glucose (UA) Urine Ketones Urine Blood Urine Nitrite Urine Bilirubin Urine Urobilinogen Ur Leukocyte Esterase Urine WBC (Auto) Urine RBC (Auto) U Hyaline Cast (Auto) U Epithel Cells (Auto) Urine Bacteria (Auto) SARS-CoV-2, RNA, NAAT 11/29/22 11/29/22 11/29/22 07:45 06:29 06:03 WBC RBC Hgb Hct MCV MCH MCHC RDW Std Deviation RDW Coeff of [place] Plt Count MPV Immature Gran % (Auto) Neut % (Auto) Lymph % (Auto) [place] % (Auto) Eos % (Auto) Baso % (Auto) Neut # (Auto) Lymph # (Auto) Aiken # (Auto) Eos # (Auto) Baso # (Auto) Immature Gran # (Auto) PT INR APTT PTT Ratio Activ Coag Time Kaolin Sodium Potassium Chloride Carbon Dioxide Anion Gap BUN Creatinine Est Cr Clr Drug Dosing Est GFR ( Amer) Est GFR (Non-Af Amer) BUN/Creatinine Ratio Glucose Calcium Total Bilirubin AST ALT Alkaline Phosphatase Troponin I High Sens 1028.5 H* D Total Protein Albumin Globulin Albumin/Globulin Ratio Lipase Urine Color Yellow Urine Appearance Clear Urine pH 7.0 Ur Specific [place] 1.017 Urine Protein 2+ H Urine Glucose (UA) Negative Urine Ketones Negative Urine Blood Negative Urine Nitrite Negative Urine Bilirubin Negative Urine Urobilinogen Negative Ur Leukocyte Esterase Negative Urine WBC (Auto) 1-5 Urine RBC (Auto) 0-4 U Hyaline Cast (Auto) 1-5 U Epithel Cells (Auto) 5-10 H Urine Bacteria (Auto) Negative SARS-CoV-2, RNA, NAAT NEGATIVE 11/29/22 11/29/22 11/29/22 05:40 05:40 05:40 WBC 8.07 RBC 4.30 L Hgb 13.8 L Hct 39.5 L MCV 91.9 MCH 32.1 MCHC 34.9 RDW Std Deviation 44.4 RDW Coeff of [place] 13.2 Plt Count 353 MPV 8.6 L Immature Gran % (Auto) 0.5 Neut % (Auto) 63.0 Lymph % (Auto) 23.9 Aiken % (Auto) 7.7 Eos % (Auto) 4.3 Baso % (Auto) 0.6 Neut # (Auto) 5.08 Lymph # (Auto) 1.93 Aiken # (Auto) 0.62 Eos # (Auto) 0.35 Baso # (Auto) 0.05 Immature Gran # (Auto) 0.04 H PT 10.3 INR 1.0 APTT 25.5 PTT Ratio 0.9 Activ Coag Time Kaolin Sodium 140 Potassium 3.4 L Chloride 104 Carbon Dioxide 29 Anion Gap 7 BUN 30 H Creatinine 1.31 Est Cr Clr Drug Dosing 36.7 Est GFR ( Amer) 57.1 Est GFR (Non-Af Amer) 49.3 BUN/Creatinine Ratio 22.9 H Glucose 122 H Calcium 9.9 Total Bilirubin 0.6 AST 20 ALT 15 Alkaline Phosphatase 66 Troponin I High Sens 674.3 H* Total Protein 7.5 Albumin 4.1 Globulin 3.4 Albumin/Globulin Ratio 1.2 Lipase 73 Urine Color Urine Appearance Urine pH Ur Specific [place] Urine Protein Urine Glucose (UA) Urine Ketones Urine Blood Urine Nitrite Urine Bilirubin Urine Urobilinogen Ur Leukocyte Esterase Urine WBC (Auto) Urine RBC (Auto) U Hyaline Cast (Auto) U Epithel Cells (Auto) Urine Bacteria (Auto) SARS-CoV-2, RNA, NAAT Diagnostic Findings Chest X-Ray 11/29/22 05:49 XR chest 1V portable CLINICAL HISTORY: Chest pain, nonspecific COMPARISON STUDY: PET/CT April 06, 2018. FINDINGS: Lung volumes are normal. Lungs are clear. There is no pneumothorax or pleural effusion. Cardiac size is normal. Mediastinal contours are normal. There is no evidence for pulmonary edema. Incidental note is made of severe bilateral glenohumeral joint osteoarthritis. IMPRESSION: No acute cardiopulmonary findings. ACT 112: Negative or not required by law. Electronically signed by: Jose Vasquez M.D. 11/29/2022 7:[address] 11/29/22 06:35 CT OF THE CHEST WITH IV CONTRAST CLINICAL HISTORY: chest pain, abnormal CXR COMPARISON STUDY: PET/CT April 06, 2018. TECHNIQUE: Following IV administration of 88 mL of Optiray, helical axial images of the chest were obtained. Sagittal and coronal reconstructions were viewed as well as maximal intensity projections on an independent 3-D workstation. Automated exposure control was utilized for the study. A dose lowering technique was utilized adhering to the principles of ALARA. CT DOSE: 640.73 mGy.cm FINDINGS: There is no thoracic aortic dissection. Mild cardiomegaly is noted. Note is made of hypoenhancement of the interventricular septum, left ventricular apex and distal free wall. There is no pericardial effusion. No central pulmonary embolus. No pneumothorax or pleural effusion is present. There is no consolidation to suggest pneumonia. A few small right lower lobe pulmonary nodules are unchanged since CT of April 06, 2018. A sclerotic lesion within the left scapular tip has slightly increased since prior PET/CT. This is indeterminate. There is a lateral segment hepatic cyst. Gallstones within the gallbladder noted. Gallbladder is partially imaged. IMPRESSION: 1. Hypoenhancement of the interventricular septum and left ventricular apex and distal free wall. This could be correlated with cardiac enzymes to exclude acute myocardial infarction. 2. No consolidation to suggest pneumonia. 3. Cholelithiasis. ACT 112: Negative or not required by law. Electronically signed by: Jose Vasquez M.D. 11/29/2022 7:46 AM Code Status & VTE Plan Code Status Full Code Supervising Physician Co-Signing Physician Notes Patient seen and examined independently. Agree with above documentation by Fifi Blair PA-C. Patient had heart alert called on arrival to the ED due to chest pain and new onset left bundle branch block. Patient underwent cardiac catheterization with stents placement by cardiology. Patient is admitted to ICU for closer monitoring. Patient reports improvement in his chest pain. No complaint of shortness of breath or diaphoresis. His last echo was in February 2022. He had ejection fraction of 60 to 65%. Stress echo did not show any inducible ischemia . His echocardiogram on arrival showed EF of 30 to 35% with large sized apical, segmental, anteroseptal, anterior and inferior wall motion abnormality with hypokinesis/akinesis of the segments. Assessment/plan; STEMI status post cardiac catheterization with intervention(Stent)continue on dual antiplatelet. Started on losartan and metoprolol. We will trite the dose as tolerated. Monitor on telemetry. Appreciate cardiology input. Discontinue home Cardizem and lisinopril/hydrochlorothiazide.
[2022-11-29] MEDS ORDERED: SODIUM CHLORIDE 0.9% 1000ML 1,000 ML IV SCH (10:15)
[2022-11-29] MEDS ORDERED: EPTIFIBATIDE 75 MG/100 ML VIAL IV SCH (10:15)
--- NOTE | 2022-11-29 10:22 | Cardiac Catheterization ---
[facility] Data: [employer] Cardiac Status Clinical evaluation leading to the procedure CAD Presenation: STEMI Anginal Classification: CCS IV Diagnostic Physicians Name: Deacon Contreras MD Closure Device Recommendations: PCI without planned CABG Cardiac Cath Procedure Full Procedure Date November 29, 2022 Pre-Procedure Diagnosis Pre-Procedure Diagnosis: STEMI AUC Score AUC Score: 9 Post-Procedure Diagnosis Post-Procedure Diagnosis: Severe CAD and Normal Intracardiac Pressures Procedure(s) Performed Procedure(s) Performed: Coronary Angiography, Left Heart Cath, Drug Eluting Stent and IVUS Computational Physicist Deacon Contreras MD Web Operations Lead(s) Showers Estimated Blood Loss Estimated Blood Loss: 15 Medication(s) Medication(s): Fentanyl, Heparin, Lidocaine 1%, Nicardipine, Nitroglycerin and Versed Summary of Findings Indication: New onset left bundle branch block, anterior motion abnormality. Heart alert Access: 6 Fr right radial artery Catheters: EBU 3.5 guide. Diagnostic JR4 Findings: LM -angulated, 30 to 40% proximal, distal segment ectatic. IVUS revealed only mild proximal disease LAD -large caliber, 100% acute proximal occlusion after takeoff of medium D1. After flow reestablished diffuse mid segment disease. Small D2 with 95% plus proximal disease Circumflex -dominant, large caliber, 30 to 40% ostial stenosis, mild mid segment disease. 98% distal stenosis just after takeoff of OM 3 with VEGA II-III flow in left PDA. Ramusmedium caliber, early bifurcating, no significant disease. RCA -small, nondominant, 60 to 70% proximal LVEDP -17 -- PCI -- Antithrombotic therapy: Heparin, Integrilin, ticagrelor Procedure: Left main cannulated with EBU 3.5 guide [facility] Monitor 50 wire passed across lesion into distal LAD Mid LAD lesion predilated with 2.5 compliant balloon [place] IVUS catheter placed into mid LAD. Pullback revealed diffuse mid segment disease with severe disease just after D1 and heavy thrombus burden. Minimal proximal/ostial LAD. Mild left main disease Whisper wire placed into D1 Proximal to mid LAD stented with 3.5 x 30 mm Carlos drug-eluting stent Stent postdilated with 3.75 NC. IC vasodilators administered Questionable residual haziness in distal aspect of stent. Stent to be postdilated with 4.0 NC balloon. Following post dilation had no reflow in mid to distal LAD Second drug-eluting stent placed to mid LAD (2.5 x 30 mm Carlos) overlapping distal aspect of initial stent Stent postdilated with 3.0 NC Additional IC vasodilators administered and started on IV/IV Integrilin Post stenting improved distal LAD flow VEGA II-III. Had persistent chest pain and VEGA II flow noted in distal circumflex/left PDA Whisper wire navigated into OM 3. Mild 50 wire navigated across distal circumflex lesion into left PDA Distal circumflex dilated with 2.5 balloon Distal circumflex stented with 2.75 x 18 mm Carlos drug-eluting stent across takeoff of OM 3 Stent postdilated with stent balloon. Mild residual stenosis of circumflex stented segment but VEGA-3 flow in PDA, OM 3. Post procedure VEGA 3 flow LAD, circumflex. No apparent cardiac complications. Arterial Closure: TR band Summary: 1. Acute 100% earlymid LAD occlusion 2. Severe nonculprit coronary artery disease 98% distal dominant circumflex with VEGA II-III flow in left PDA Small nondominant RCA with 60 to 70% proximal 30% proximal left main Small D2 95% proximal 80% ostial OM 3 3. Normal intracardiac filling pressure 4. Successful PCI of proximal to mid LAD with 2 overlapping drug-eluting stents (3.5 x 30, 2.5 x 30 mm [place] Postdilated with 4.0 NC). 5. Successful PCI of distal circumflex with single drug-eluting stent (2.75 x 18 mm Carlos). Recommendations: Admit to ICU for continued monitoring Loaded with ticagrelor 180 mg in [place] [employer] Continue Integrilin infusion for 3 hours Continue dual-antiplatelet therapy for at least 1 year. Trend troponins until peak, Check Echo Uptitrate beta-latosha/ARB as BP allows High-dose statin Consult cardiac Rehab Medical management of residual CAD. Hemodynamics Rest Ao:: 137/73/99 Final Ao: 144/69/117 LV: 138/17 Recommendations Recommendations: PCI without planned CABG Specimens Specimens: None Radiation Exposure (mGy) 4151 Contrast (mls) 240 Anesthesia Moderate 2855-8946 Procedural Complication(s) None Disposition ICU I attest to the content of the Intraoperative Record and any orders documented therein. Any exceptions are noted below. [employer] Card Cath Procedure Codes Cardiac Catheterization Procedure 1: Cardiovascular Cath Procedures: 73783 Coronaries and LHC (+/-LV) Therapeutic Services & Ancillary Procedure 1: Cardiovascular Tx and Anc Procedures: 42857 IV Ultrasound (Coronary or Graft) Moderate Sedation Procedure 1: Sedation/Anesthesia: 66283 Mod Sedation by the same physician;Init15 Min Child Age 5 & Up Procedure 2: Sedation/Anesthesia: 32238 Mod Sedation by the same physician; Ea [id number] Minutes Stenting Procedure 1: Cardiovascular Stent Procedures: 80521 Perc transluminal revascularization of acute sub/total occl, aMI Procedure 2: Cardiovascular Stent Procedures: 75067 Ea addl branch of a major coronary artery PG Care Time/CCT Total # of Minutes Spent Total Time Spent with Patient: Total time spent is greater than 50% in coordination of care (as documented) at patient's floor/unit and/or counseling patient:
[2022-11-29] MEDS: ICU Protocol for HYPERglycemia SCH ×3 (11:30→22:01)
[2022-11-29 11:47] LABS: Chol HDL Ratio 3.8 (0-5)
[2022-11-29] MEDS ORDERED: POTASSIUM CHLORIDE CRTAB 20 MEQ TABCR PO STA (12:40)
--- NOTE | 2022-11-29 13:30 | Critical Care Consultation ---
Date of Consultation November 29, 2022 Assessment & Plan (1) ST elevation (STEMI) myocardial infarction involving left anterior descending coronary artery: (2) CAD (coronary artery disease): (3) Prostate cancer: (4) Hypertension: (5) Hyperlipidemia: (6) CKD (chronic kidney disease): Plan -- STEMI S/p 2 TRINI in the LAD, 1 in the right circumflex Currently on Integrilin drip Continue with beta-blockers, DAPT, TAWANA/ARB, statin -- Hypertension/dyslipidemia Continue with atorvastatin and blood pressure medication --CKD Monitor BUNs/creatinine Avoid nephrotoxic medication --Normocytic anemia Monitor H&H --Bright red blood per rectum Likely from underlying hemorrhoids Continue to monitor --Prophylaxis VTE: IPC GI: None Lines: Peripheral Diet: Cardiac Plan: Patient is complaining of mild chest pain. Repeat EKG did not show any changes compared to the one which was done at 10 AM. Will consider Nitropaste Hypokalemia being replaced. Repeat BMP 6 PM Continue to trend troponins Please note the above document was generated using voice recognition software. It may contain grammatical, syntax or spelling errors.Any formal questions or concerns about the content, text or information contained within the body of this dictation should be directly addressed to the provider for clarification. History of Present Illness Attending Physician: Sylvester aFgan MD History of Present Illness 87-year-old male presented to the hospital with complaints of acute onset of chest pain 10 out of 10 Past medical history: Coronary artery disease, dyslipidemia, CKD stage III, hypertension, history of colon and prostate cancer Patient was found to be in new left bundle branch block. Patient was in 3 stents were placed. In the ICU for further management Patient's family was in the room at the time of examination. Patient stated that his pain in the chest right now is 6 out of 10. He came in with count of 10 Systolic blood pressure was in the 160s. Heart rate in the 80s Denies any shortness of breath. No dizziness, no nausea vomiting He did have his lunch. Is says that usually if the pillow on the back is not well-placed and he usually gets chest pain. Social history lifetime non-smoker. Taken to the Siding [facility] Allergies Allergy/AdvReac Type Severity Reaction Status Date / Time No Known Allergies Allergy Verified 10/01/22 14:13 Home Medications Medication Instructions Recorded Confirmed Type atorvastatin 10 mg tablet 10 mg PO QAM 10/11/19 11/29/22 History calcium carbonate 600 mg calcium 600 mg PO QAM 10/11/19 11/29/22 History (1,500 mg) tablet cholecalciferol (vitamin D3) 25 1,000 unit PO QAM 10/11/19 11/29/22 History mcg (1,000 unit) capsule (Vitamin D3) diltiazem HCl 180 mg capsule,24 180 mg PO QAM 10/11/19 11/29/22 History hr,extended release lisinopril 20 1 tab PO QAM 10/11/19 11/29/22 History mg-hydrochlorothiazide 25 mg tablet bkqjryvm-goc-tvfvc acid 0.4 1 tab PO QAM 10/11/19 11/29/22 History mg-lycopene 300 mcg-lutein 250 mcg tablet (Centrum Silver) pyridoxine (vitamin B6) 25 mg 25 mg PO DAILY 09/26/20 11/29/22 History tablet ascorbic acid (vitamin C) 500 mg 500 mg PO DAILY 11/29/22 11/29/22 History capsule,extended release (Vitamin C) cyanocobalamin (vitamin B-12) 1,000 mcg PO DAILY 11/29/22 11/29/22 History 1,000 mcg tablet (Vitamin B-12) zinc 50 mg capsule 50 mg PO DAILY 11/29/22 11/29/22 History Patient History Medical History (Updated 11/29/22 @ 14:25 by Anirudh Malave MD, [facility]) Chronic back pain Hearing deficit Hyperlipidemia Hypertension Prostate cancer (04/27/02) Rectal bleeding Surgical History (Updated 11/29/22 @ 10:20 by Cierra Blair PA-C) History of appendectomy History of colonoscopy with polypectomy History of prostate biopsy x2---malignat: 2001 and then again in 2018 (radiation) History of prostatectomy 2001 History of tonsillectomy and adenoidectomy History of tooth extraction Status post debridement of bone spur x2--bilt feet (hardware in left foot) Status post trigger finger release left hand Family History Other Family history not known due to adoption Social History Smoking Status: Never smoker Second Hand Exposure: No; Do You Dip or Chew Tobacco: No; Tobacco Cessation Education Requested by Patient: No Hx Alcohol Use: Yes Alcohol type: wine Hx Substance Use: No Preferred Language: Mohawk Communication Ability: Effective Advertising Coordinator Required: No Beliefs That Will Affect Care: None Current Living Situation: Spouse Other Information That Helps Us Care for You: No Feels Safe at Home: Yes Safety Concerns: Feels Safe At This Time Assistive Devices: Glasses Review of Systems Review of Systems: All systems reviewed & are unremarkable except as noted in Subjective Physical Exam Physical Exam: Constitutional: No acute distress HEENT: EOMI, PERRLA Respiratory system: Good air entry bilaterally, no wheeze, rhonchi, positive crackles bilateral lower lobes CVS: S1-S2 positive, no murmurs or gallops, accentuated P2 Abdomen: Soft, nontender, nondistended, positive bowel sounds x4 Extremities: +2 pulses bilaterally radialis/ dorsalis pedis, no cyanosis, no edema Neuro: Awake alert oriented x3 Psych: Normal mood and affect G/U: No [place] Skin: no rashes, warm and dry Lymphatic: no cervical or axillary lymphadenopathy Results & Data Results & Data ([facility]) Vital Signs (Past 12 Hours) Vital Signs Temp Pulse Pulse Resp BP BP Pulse Ox 11/29/22 10:53 36.8 C 80 18 149/80 H 95 11/29/22 07:55 70 18 133/89 97 11/29/22 07:34 83 18 132/99 97 11/29/22 06:50 72 10 L 120/70 96 11/29/22 06:39 61 10 L 138/64 95 11/29/22 06:30 78 12 146/75 H 11/29/22 06:09 67 14 11/29/22 06:09 170/82 H 11/29/22 06:00 75 18 98 11/29/22 05:41 79 24 98 11/29/22 05:41 172/91 H 11/29/22 05:36 80 21 11/29/22 06:00 71 13 172/91 H 97 11/29/22 05:53 97 11/29/22 05:26 36.0 C L 76 18 179/84 H 99 O2 Del Method 11/29/22 10:53 Room Air 11/29/22 07:55 Room Air 11/29/22 07:34 Room Air 11/29/22 06:50 11/29/22 06:39 11/29/22 06:30 11/29/22 06:09 11/29/22 06:09 11/29/22 06:00 11/29/22 05:41 11/29/22 05:41 11/29/22 05:36 11/29/22 06:00 11/29/22 05:53 Room Air 11/29/22 05:26 Room Air Laboratory Results 11/29/22 05:40 11/29/22 05:40 Coding Level of Care Code INP/OBS CONSULT LVL 4, [address] elevation (STEMI) myocardial infarction involving left anterior descending coronary artery I21.02 CAD (coronary artery disease) I25.10 Prostate cancer C61 Hypertension I10 Hyperlipidemia E78.5 CKD (chronic kidney disease) N18.9
--- NOTE | 2022-11-29 15:59 | Electrocardiogram Report ---
Test Reason : Blood Pressure : / mmHG Vent. Rate : 071 BPM Atrial Rate : 071 BPM P-R Int : 212 ms QRS Dur : 160 ms QT Int : 436 ms P-R-T Axes : 066 -32 124 degrees QTc Int : 473 ms Sinus rhythm with 1st degree A-V block with occasional Premature ventricular complexes Left axis deviation Left bundle branch block ST elevation consider anterior injury or acute infarct Abnormal ECG No previous ECGs available Confirmed by Leon Arora ([id number]) on 11/29/2022 3:59:01 PM Referred By: REFERRED SELF Confirmed By:Leon Arora
--- NOTE | 2022-11-29 16:00 | Electrocardiogram Report ---
Test Reason : Blood Pressure : / mmHG Vent. Rate : 066 BPM Atrial Rate : 066 BPM P-R Int : 234 ms QRS Dur : 160 ms QT Int : 462 ms P-R-T Axes : 062 -55 132 degrees QTc Int : 484 ms Sinus rhythm with 1st degree A-V block Left axis deviation Left bundle branch block ST elevation consider anterior injury or acute infarct Abnormal ECG When compared with ECG of 29-NOV-2022 05:35, (unconfirmed) Premature ventricular complexes are no longer Present Confirmed by Leon Arora ([id number]) on 11/29/2022 3:59:28 PM Referred By: REFERRED SELF Confirmed By:Leon Arora
--- NOTE | 2022-11-29 16:12 | Electrocardiogram Report ---
Test Reason : Blood Pressure : / mmHG Vent. Rate : 080 BPM Atrial Rate : 080 BPM P-R Int : 222 ms QRS Dur : 154 ms QT Int : 416 ms P-R-T Axes : 048 -38 098 degrees QTc Int : 479 ms Sinus rhythm with 1st degree A-V block Left axis deviation Left bundle branch block Anterior ST abnormality Abnormal ECG When compared with ECG of 29-NOV-2022 06:45, (unconfirmed) No significant change was found Confirmed by Leon Arora ([id number]) on 11/29/2022 4:11:52 PM Referred By: REFERRED SELF Confirmed By:Leon Arora
[2022-11-29] MEDS: METOPROLOL TARTRATE 25 MG TAB PO SCH (17:56)
[2022-11-29 18:50] LABS: BUN Creatinine Ratio 20.7 (10-20); Calcium 9.4 mg/dl (8.5-10.1); Creatinine Clr Calc Pharmacy 43.2 ml/min; Est GFR (African American) 62.9 ml/min; Est GFR (Non-African American) 54.3 ml/min; Magnesium 1.7 mg/dl (1.7-2.4); Phosphorus 2.1 mg/dl (2.5-4.9); Potassium 4.5 mmol/L (3.5-5.1)
[2022-11-29 19:52] LABS: Troponin I High Sensitivity 242094.3 pg/ml (0-20)
[2022-11-29] MEDS ORDERED: METOPROLOL TARTRATE 25 MG TAB PO SCH (21:00)
[2022-11-29] MEDS: PANTOprazole 40 MG in SYRINGE 0 ML IV SCH (21:14)
[2022-11-29] MEDS: LOSARTAN POTASSIUM 25 MG TAB PO SCH (21:14)
[2022-11-29] MEDS: TICAGRELOR 90 MG TAB PO SCH (21:31)
[2022-11-30 06:14] LABS: Basophils # (auto) 0.03 K/uL (0-0.2); Basophils % (auto) 0.3 %; Eosinophils # (auto) 0.02 K/uL (0-0.50); Eosinophils % (auto) 0.2 %; Hematocrit (blood only) 32.9 % (40.1-51.0); Hemoglobin 11.7 g/dl (14.0-18.0); Immature Granulocytes # (auto) 0.06 K/uL (0.00-0.02); Immature Granulocytes % (auto) 0.6 %; Lymphocytes # (auto) 0.92 K/uL (1.2-3.4); Lymphocytes % (auto) 9.1 %; Mean Corpuscular Hemoglobin 32.5 pg (25.0-34.0); Mean Corpuscular Hgb Conc 35.6 g/dL (32.0-36.0); Mean Corpuscular Volume 91.4 fL (80.0-100.0); Mean Platelet Volume 8.7 fL (9.4-12.4); Monocytes # (auto) 1.21 K/uL (0.24-0.82); Neutrophils # (auto) 7.88 K/uL (1.4-6.5); Neutrophils % (auto) 77.8 %; Platelet Count 277 K/uL (130-400); RDW Coefficient of Variation 13.5 % (11.5-14.5); RDW Standard Deviation 45.5 fL (36.4-46.3); White Blood Count 10.12 K/ul (4.8-10.8)
[2022-11-30 06:33] LABS: BUN Creatinine Ratio 18.1 (10-20); Calcium 8.7 mg/dl (8.5-10.1); Creatinine Clr Calc Pharmacy 41.1 ml/min; Est GFR (African American) 59.3 ml/min; Est GFR (Non-African American) 51.2 ml/min
[2022-11-30 07:11] LABS: Estimated Average Glucose 108 mg/dl; Hemoglobin A1C 5.4 % (4.5-5.6)
[2022-11-30] MEDS: ICU Protocol for HYPERglycemia SCH ×4 (07:30→21:11)
--- NOTE | 2022-11-30 07:46 | Critical Care Progress Note ---
Date of Service November 30, 2022 Assessment & Plan (1) ST elevation (STEMI) myocardial infarction involving left anterior de scending coronary artery: (2) CAD (coronary artery disease): (3) Prostate cancer: (4) Hypertension: (5) Hyperlipidemia: (6) CKD (chronic kidney disease): Plan -- STEMI S/p 2 TRINI in the LAD, 1 in the right circumflex Currently on Integrilin drip Continue with beta-blockers, DAPT, TAWANA/ARB, statin -- Hypertension/dyslipidemia Continue with atorvastatin and blood pressure medication --CKD Monitor BUNs/creatinine Avoid nephrotoxic medication --Normocytic anemia Monitor H&H --Bright red blood per rectum Likely from underlying hemorrhoids Continue to monitor --Prophylaxis VTE: IPC GI: Pantoprazole Lines: Peripheral Diet: Cardiac Plan: In/out: +556, urine output 813 mL Patient clinically doing well. Continue with beta-latosha, carvedilol, ARB aspirin and statin. Patient hemodynamically stable to be downgraded to a telemetry floor. Please note the above document was generated using voice recognition software. It may contain grammatical, syntax or spelling errors.Any formal questions or concerns about the content, text or information contained within the body of this dictation should be directly addressed to the provider for clarification. Admission and Anticipated Discharge Date Admission Date: November 29, 2022 Subjective Patient seen and examined at bedside. No acute distress, no adverse events overnight. No chest pain today. No shortness of breath No nausea vomiting Did have breakfast today. No abdominal pain. Review of Systems Review of Systems: All systems reviewed & are unremarkable except as noted in Subjective Physical Exam Physical Exam: Constitutional: No acute distress HEENT: EOMI, PERRLA Respiratory system:Good air entry bilaterally, no wheeze, rhonchi, mild crackles bilateral lower lobes CVS: S1-S2 positive, no murmurs or gallops, accentuated P2 Abdomen: Soft, nontender, nondistended, positive bowel sounds x4 Extremities: +2 pulses bilaterally radialis/ dorsalis pedis, no cyanosis, no edema Neuro: Awake alert oriented x3 Psych: Normal mood and affect G/U: No Shoemaker Skin: no rashes, warm and dry Lymphatic: no cervical or axillary lymphadenopathy Results & Data Results & Data ([facility]) Vital Signs (Past 12 Hours) Vital Signs Temp Pulse Resp BP Pulse Ox O2 Del Method 11/30/22 06:01 77 19 126/68 99 11/30/22 05:00 72 12 124/70 96 11/30/22 04:00 68 15 97 11/30/22 04:00 104/61 11/30/22 03:04 74 20 126/73 11/30/22 03:00 72 17 11/30/22 02:00 68 15 117/57 L 95 11/30/22 01:00 69 15 106/52 L 11/29/22 23:26 72 11/29/22 22:00 81 17 134/70 90 11/29/22 21:01 83 13 123/75 98 11/29/22 20:59 36.5 C 11/29/22 20:02 93 H 15 157/84 H 97 Room Air Laboratory Results 11/30/22 05:53 11/30/22 05:53 Coding Level of Care Code 59485 SUB INP/OBS CARE 2/35MIN Diagnoses ST elevation (STEMI) myocardial infarction involving left anterior descending coronary artery I21.02 CAD (coronary artery disease) I25.10 Prostate cancer C61 Hypertension I10 Hyperlipidemia E78.5 CKD (chronic kidney disease) N18.9
[2022-11-30] MEDS: METOPROLOL TARTRATE 25 MG TAB PO SCH ×2 (08:43→20:16)
[2022-11-30] MEDS: TICAGRELOR 90 MG TAB PO SCH ×2 (08:43→20:17)
[2022-11-30] MEDS: ASPIRIN 81 MG ECTAB PO SCH (08:43)
[2022-11-30] MEDS: ATORVASTATIN 40 MG TAB PO SCH (08:43)
[2022-11-30] MEDS: LOSARTAN POTASSIUM 25 MG TAB PO SCH ×2 (08:43→20:16)
[2022-11-30] MEDS: PANTOprazole 40 MG in SYRINGE 0 ML IV SCH ×2 (08:45→20:16)
[2022-11-30 08:50] LABS: Magnesium 1.7 mg/dl (1.7-2.4); Phosphorus 3.4 mg/dl (2.5-4.9)
[2022-11-30] MEDS ORDERED: LOSARTAN POTASSIUM 25 MG TAB PO SCH (09:00)
[2022-11-30] MEDS: MAGNESIUM SULFATE / D5W 1 GM/100 ML BAG IV SCH ×2 (10:15→13:00)
--- NOTE | 2022-11-30 10:28 | Hospitalist Progress Note ---
Date of Service November 30, 2022 Assessment & Plan (1) ST elevation (STEMI) myocardial infarction involving left anterior de scending coronary artery: (2) CAD (coronary artery disease): (3) Hypertension: (4) Hyperlipidemia: (5) S/P cardiac catheterization: Plan: Presented to the ED with crushing chest pain. EKG showed new onset left bundle branch block Stat echo in the ED showed reduced EF of 30 to 35% along with large sized apical, segmental, anteroseptal, anterior and inferior wall abnormality with hypokinesis to akinesis of the segments. Patient underwent cardiac catheterization on 11/29/2022 sp stenting x 2 in the LAD and x1 in the distal circumflex Was admitted to ICU for closer monitoring No overnight events on the telemetry. Plan; Continue on dual antiplatelet with aspirin and Brilinta. Continue on metoprolol and losartan. -Continue to monitor on telemetry. -Cardiac rehab. -Appreciate cardiology input. -Transfer to PCU/telemetry Bright red blood per rectum -Patient reports painless bright red blood per rectum. -His hemoglobin is lower from 13.8-11.7. -Currently on dual antiplatelet agents -Started on Protonix twice daily by ICU. -GI consulted; appreciate recs. CODE: Full code-discussed with the patient, his , son and daughter at bedside Dispo: From home, likely to remain in the hospital x 1-2 days Admission and Anticipated Discharge Date Admission Date: November 29, 2022 Subjective Patient seen and examined at bedside. He is comfortably lying in the bed; not in any distress. He reports resolution of chest pain. No complaint of breathing issue. He reports episodes of bright red blood per rectum. Telemetry overnight did not show any significant arrhythmia. Review of Systems Review of Systems: All systems reviewed & are unremarkable except as noted in Subjective Physical Exam Physical Exam: Constitutional: WD/WN, vitals as above, NAD, sitting up in bed, pleasant, conversing easily Respiratory: normal respiratory effort, lungs clear to auscultation, no wheeze, rales, rhonchi. Normal insp/exp effort, no accessory muscle use Cardiovascular: RRR, no murmur, no edema Vessels: no JVD or carotid bruit Chest: normal inspection of chest Abdomen: normal bowel sounds, soft, nontender, no hepatosplenomegaly Musculoskeletal: no cyanosis or clubbing, extremities motor strength 5/5 Skin: no rashes, warm and dry normal turgor Neurologic: PERRL, EOMI, accommodation nl, no face palsy, no dysarthria CN's II- XI intact bilaterally and moves all extremities Psychiatric: A+Ox3, euthymic affect Lymphatic: no cervical or axillary lymphadenopathy : deferred Results & Data Results & [facility] ([facility]) Vital Signs (Past 12 Hours) Vital Signs Pulse Resp BP Pulse Ox 11/30/22 08:00 84 11/30/22 06:01 77 19 126/68 99 11/30/22 05:00 72 12 124/70 96 11/30/22 04:00 68 15 97 11/30/22 04:00 104/61 11/30/22 03:04 74 20 126/73 11/30/22 03:00 72 17 11/30/22 02:00 68 15 117/57 L 95 11/30/22 01:00 69 15 106/52 L 11/29/22 23:26 72 Laboratory Results Laboratory Results WBC 10.12 K/ul (4.8-10.8) 11/30/22 05:53 RBC 3.60 M/uL (4.63-6.08) L 11/30/22 05:53 Hgb 11.7 g/dl (14.0-18.0) L 11/30/22 05:53 Hct 32.9 % (40.1-51.0) L 11/30/22 05:53 MCV 91.4 fL (80.0-100.0) 11/30/22 05:53 MCH 32.5 pg (25.0-34.0) 11/30/22 05:53 MCHC 35.6 g/dL (32.0-36.0) 11/30/22 05:53 RDW Std Deviation 45.5 fL (36.4-46.3) 11/30/22 05:53 RDW Coeff of [place]icho 13.5 % (11.5-14.5) 11/30/22 05:53 Plt Count 277 K/uL (130-400) 11/30/22 05:53 MPV 8.7 fL (9.4-12.4) L 11/30/22 05:53 Immature Gran % (Auto) 0.6 % 11/30/22 05:53 Neut % (Auto) 77.8 % 11/30/22 05:53 Lymph % (Auto) 9.1 % 11/30/22 05:53 [place] % (Auto) 12.0 % 11/30/22 05:53 Eos % (Auto) 0.2 % 11/30/22 05:53 Baso % (Auto) 0.3 % 11/30/22 05:53 Neut # (Auto) 7.88 K/uL (1.4-6.5) H 11/30/22 05:53 Lymph # (Auto) 0.92 K/uL (1.2-3.4) L 11/30/22 05:53 [place] # (Auto) 1.21 K/uL (0.24-0.82) H 11/30/22 05:53 Eos # (Auto) 0.02 K/uL (0-0.50) 11/30/22 05:53 Baso # (Auto) 0.03 K/uL (0-0.2) 11/30/22 05:53 Immature Gran # (Auto) 0.06 K/uL (0.00-0.02) H 11/30/22 05:53 PT 10.3 Seconds (9.0-12.0) 11/29/22 05:40 INR 1.0 (0.9-1.1) 11/29/22 05:40 APTT 25.5 Seconds (21.0-31.0) 11/29/22 05:40 PTT Ratio 0.9 11/29/22 05:40 Activ Coag Time Kaolin 323 SECONDS (94-140) H 11/29/22 09:23 Sodium 139 mmol/L (136-145) 11/30/22 05:53 Potassium 4.0 mmol/L (3.5-5.1) 11/30/22 05:53 Chloride 107 mmol/L (98-107) 11/30/22 05:53 Carbon Dioxide 26 mmol/L (21-32) 11/30/22 05:53 Anion Gap 6 (3-11) 11/30/22 05:53 BUN 23 mg/dl (6-23) 11/30/22 05:53 Creatinine 1.27 mg/dl (0.6-1.4) 11/30/22 05:53 Est Cr Clr Drug Dosing 41.1 ml/min 11/30/22 05:53 Est GFR ( Amer) 59.3 ml/min 11/30/22 05:53 Est GFR (Non-Af Amer) 51.2 ml/min 11/30/22 05:53 BUN/Creatinine Ratio 18.1 (10-20) 11/30/22 05:53 Glucose 119 mg/dl (70-99(Fasting)) H 11/30/22 05:53 POC Glucose 116 mg/dl (70-99) H 11/30/22 07:22 Estimat Average Glucose 108 mg/dl 11/30/22 05:53 Hemoglobin A1c 5.4 % (4.5-5.6) 11/30/22 05:53 Calcium 8.7 mg/dl (8.5-10.1) 11/30/22 05:53 Phosphorus 3.4 mg/dl (2.5-4.9) D 11/30/22 08:00 Magnesium 1.7 mg/dl (1.7-2.4) 11/30/22 08:00 Total Bilirubin 0.6 mg/dl (0.2-1.0) 11/29/22 05:40 AST 20 U/L (13-39) 11/29/22 05:40 ALT 15 U/L (7-52) 11/29/22 05:40 Alkaline Phosphatase 66 U/L (34-104) 11/29/22 05:40 Troponin I High Sens 16593.7 pg/ml (0-20) H* D 11/30/22 05:53 Total Protein 7.5 gm/dl (6.0-8.3) 11/29/22 05:40 Albumin 4.1 gm/dl (3.4-5.0) 11/29/22 05:40 Globulin 3.4 gm/dl (2.5-4.0) 11/29/22 05:40 Albumin/Globulin Ratio 1.2 (0.9-2) 11/29/22 05:40 Triglycerides 147 mg/dl (0-150) 11/29/22 05:40 Cholesterol 187 mg/dl (0-200) 11/29/22 05:40 LDL Cholesterol Direct 83 mg/dl 11/30/22 05:53 LDL Cholesterol, Calc 109 mg/dl 11/29/22 05:40 VLDL Cholesterol, Calc 29 mg/dl (0-30) 11/29/22 05:40 HDL Cholesterol 49 mg/dl 11/29/22 05:40 Cholesterol/HDL Ratio 3.8 (0-5) 11/29/22 05:40 Lipase 73 U/L (11-82) 11/29/22 05:40 Urine Color Yellow 11/29/22 06:29 Urine Appearance Clear (Clear) 11/29/22 06:29 Urine pH 7.0 (4.5-7.5) 11/29/22 06:29 Ur Specific Ubly 1.017 (1.000-1.030) 11/29/22 06:29 Urine Protein 2+ (Negative) H 11/29/22 06:29 Urine Glucose (UA) Negative (Negative) 11/29/22 06:29 Urine Ketones Negative (Negative) 11/29/22 06:29 Urine Blood Negative (Negative) 11/29/22 06:29 Urine Nitrite Negative (Negative) 11/29/22 06:29 Urine Bilirubin Negative (Negative) 11/29/22 06:29 Urine Urobilinogen Negative (Negative) 11/29/22 06:29 Ur Leukocyte Esterase Negative (Negative) 11/29/22 06:29 Urine WBC (Auto) 1-5 /hpf (0-5) 11/29/22 06:29 Urine RBC (Auto) 0-4 /hpf (0-4) 11/29/22 06:29 U Hyaline Cast (Auto) 1-5 /lpf (0-5) 11/29/22 06:29 U Epithel Cells (Auto) 5-10 /lpf (0-5) H 11/29/22 06:29 Urine Bacteria (Auto) Negative (Negative) 11/29/22 06:29 Nasal Screen MRSA (PCR) Negative (Negative) 11/29/22 16:10 SARS-CoV-2, RNA, NAAT NEGATIVE (NEGATIVE) 11/29/22 06:03 Impressions Chest X-Ray 11/29/22 05:49 XR chest 1V portable CLINICAL HISTORY: Chest pain, nonspecific COMPARISON STUDY: PET/CT April 06, 2018. FINDINGS: Lung volumes are normal. Lungs are clear. There is no pneumothorax or pleural effusion. Cardiac size is normal. Mediastinal contours are normal. There is no evidence for pulmonary edema. Incidental note is made of severe bilateral glenohumeral joint osteoarthritis. IMPRESSION: No acute cardiopulmonary findings. ACT 112: Negative or not required by law. Electronically signed by: Jose Vasquez M.D. 11/29/2022 7:[address] 11/29/22 06:35 CT OF THE CHEST WITH IV CONTRAST CLINICAL HISTORY: chest pain, abnormal CXR COMPARISON STUDY: PET/CT April 06, 2018. TECHNIQUE: Following IV administration of 88 mL of Optiray, helical axial images of the chest were obtained. Sagittal and coronal reconstructions were viewed as well as maximal intensity projections on an independent 3-D workstation. Automated exposure control was utilized for the study. A dose lowering technique was utilized adhering to the principles of ALARA. CT DOSE: 640.73 mGy.cm FINDINGS: There is no thoracic aortic dissection. Mild cardiomegaly is noted. Note is made of hypoenhancement of the interventricular septum, left ventricular apex and distal free wall. There is no pericardial effusion. No central pulmonary embolus. No pneumothorax or pleural effusion is present. There is no consolidation to suggest pneumonia. A few small right lower lobe pulmonary nodules are unchanged since CT of April 06, 2018. A sclerotic lesion within the left scapular tip has slightly increased since prior PET/CT. This is indeterminate. There is a lateral segment hepatic cyst. Gallstones within the gallbladder noted. Gallbladder is partially imaged. IMPRESSION: 1. Hypoenhancement of the interventricular septum and left ventricular apex and distal free wall. This could be correlated with cardiac enzymes to exclude acute myocardial infarction. 2. No consolidation to suggest pneumonia. 3. Cholelithiasis. ACT 112: Negative or not required by law. Electronically signed by: Jose Vasquez M.D. 11/29/2022 7:46 AM
--- NOTE | 2022-11-30 13:48 | Gastrointestinal Consultation ---
Date of Consultation November 30, 2022 Assessment & Plan (1) Hematochezia: Very pleasant man with hematochezia. What he describes sounds suggestive of hemorrhoidal bleeding because he denies going more than 2-3 times per day. Bleeding from diverticular disease usually is much more frequent. Today the blood was on the toilet tissue. Unless this was a life or issue I don't think evaluation is in his best interest anyway because of recent STEMI. For now I would observe him. He can be put on antiplatelet agents if need be with close observation. It is difficult to say how those affect hemorrhoidal bleeding History of Present Illness Reason for Consultation: hematochezia Attending Physician: Sylvester Fagan MD History of Present Illness 87 year old man admitted with a STEMI who had a couple of days of what he calls "a lot of blood with bowel movement". He tells me he typically has blood on the toilet paper but this was blood in the water. The bowel movement appeared normal to him without blood. Today the nurse reports blood on the paper. He had a colonoscopy for this in the past and had diverticulosis and hemorrhoids and was told not to do anything about it. He tends towards constipation. Today he feels very well. His H/H did fall from 13-11. Allergies Allergy/AdvReac Type Severity Reaction Status Date / Time No Known Allergies Allergy Verified 10/01/22 14:13 Home Medications Medication Instructions Recorded Confirmed Type atorvastatin 10 mg tablet 10 mg PO QAM 10/11/19 11/29/22 History calcium carbonate 600 mg calcium 600 mg PO QAM 10/11/19 11/29/22 History (1,500 mg) tablet cholecalciferol (vitamin D3) 25 1,000 unit PO QAM 10/11/19 11/29/22 History mcg (1,000 unit) capsule (Vitamin D3) diltiazem HCl 180 mg capsule,24 180 mg PO QAM 10/11/19 11/29/22 History hr,extended release lisinopril 20 1 tab PO QAM 10/11/19 11/29/22 History mg-hydrochlorothiazide 25 mg tablet [id number] acid 0.4 1 tab PO QAM 10/11/19 11/29/22 History mg-lycopene 300 mcg-lutein 250 mcg tablet (Centrum Silver) pyridoxine (vitamin B6) 25 mg 25 mg PO DAILY 09/26/20 11/29/22 History tablet ascorbic acid (vitamin C) 500 mg 500 mg PO DAILY 11/29/22 11/29/22 History capsule,extended release (Vitamin C) cyanocobalamin (vitamin B-12) 1,000 mcg PO DAILY 11/29/22 11/29/22 History 1,000 mcg tablet (Vitamin B-12) zinc 50 mg capsule 50 mg PO DAILY 11/29/22 11/29/22 History Patient History Medical History (Updated 11/30/22 @ 13:46 by Tariq Nye Jr, MD) Chronic back pain Hearing deficit Hematochezia Hyperlipidemia Hypertension Prostate cancer (04/27/02) Rectal bleeding Surgical History History of appendectomy History of colonoscopy with polypectomy History of prostate biopsy x2---malignat: 2001 and then again in 2018 (radiation) History of prostatectomy 2001 History of tonsillectomy and adenoidectomy History of tooth extraction Status post debridement of bone spur x2--bilt feet (hardware in left foot) Status post trigger finger release left hand Family History Other Family history not known due to adoption Social History Smoking Status: Never smoker Second Hand Exposure: No; Do You Dip or Chew Tobacco: No; Tobacco Cessation Education Requested by Patient: No Hx Alcohol Use: Yes Alcohol type: wine Hx Substance Use: No Preferred Language: Northern Irish Communication Ability: Effective 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 Beliefs That Will Affect Care: None Current Living Situation: Spouse Other Information That Helps Us Care for You: No Feels Safe at Home: Yes Safety Concerns: Feels Safe At This Time Assistive Devices: Glasses Review of Systems Review of Systems: All systems reviewed & are unremarkable except as noted in HPI & below Physical Exam Constitutional: WD/WN, vitals as above no acute distress Eyes: PERRL, conjunctivae normal, anicteric sclerae ENMT: external ear and nose normal, oropharynx normal Neck: trachea midline, no thyromegaly Respiratory: normal respiratory effort, lungs clear to auscultation Cardiovascular: RRR, no murmur, no edema Gastrointestinal (Abdomen): normal bowel sounds, soft, nontender, no hepatosplenomegaly Musculoskeletal: Extremities: no cyanosis and no clubbing Skin: no rashes, warm and dry Neurologic: PERRL, EOMI, accommodation nl, no face palsy, no dysarthria Psychiatric: Orientation: alert and oriented x 3 Results & Data ([facility]) Vital Signs (Past 12 Hours) Vital Signs Temp Pulse Pulse Resp BP BP Pulse Ox 11/30/22 11:34 37.9 C H 74 21 115/69 98 11/30/22 08:00 84 11/30/22 06:01 77 19 126/68 99 11/30/22 05:00 72 12 124/70 96 11/30/22 04:00 68 15 97 11/30/22 04:00 104/61 11/30/22 03:04 74 20 126/73 11/30/22 03:00 72 17 11/30/22 02:00 68 15 117/57 L 95 O2 Del Method 11/30/22 11:34 Room Air 11/30/22 08:00 11/30/22 06:01 11/30/22 05:00 11/30/22 04:00 11/30/22 04:00 11/30/22 03:04 11/30/22 03:00 11/30/22 02:00 Laboratory Results 11/30/22 11/30/22 11/30/22 Range/Units 11:14 08:00 07:22 WBC (4.8-10.8) K/ul RBC (4.63-6.08) M/uL Hgb (14.0-18.0) g/dl Hct (40.1-51.0) % MCV (80.0-100.0) fL MCH (25.0-34.0) pg MCHC (32.0-36.0) g/dL RDW Std Deviation (36.4-46.3) fL RDW Coeff of [place] (11.5-14.5) % Plt Count (130-400) K/uL MPV (9.4-12.4) fL Immature Gran % (Auto) % Neut % (Auto) % Lymph % (Auto) % [place] % (Auto) % Eos % (Auto) % Baso % (Auto) % Neut # (Auto) (1.4-6.5) K/uL Lymph # (Auto) (1.2-3.4) K/uL [place] # (Auto) (0.24-0.82) K/uL Eos # (Auto) (0-0.50) K/uL Baso # (Auto) (0-0.2) K/uL Immature Gran # (Auto) (0.00-0.02) K/uL Sodium (136-145) mmol/L Potassium (3.5-5.1) mmol/L Chloride (98-107) mmol/L Carbon Dioxide (21-32) mmol/L Anion Gap (3-11) BUN (6-23) mg/dl Creatinine (0.6-1.4) mg/dl Est Cr Clr Drug Dosing ml/min Est GFR ( Amer) ml/min Est GFR (Non-Af Amer) ml/min BUN/Creatinine Ratio (10-20) Glucose (70-99(Fasting)) mg/dl POC Glucose 106 H 116 H (70-99) mg/dl Estimat Average Glucose mg/dl Hemoglobin A1c (4.5-5.6) % Calcium (8.5-10.1) mg/dl Phosphorus 3.4 D (2.5-4.9) mg/dl Magnesium 1.7 (1.7-2.4) mg/dl Troponin I High Sens (0-20) pg/ml LDL Cholesterol Direct mg/dl Nasal Screen MRSA (PCR) (Negative) 11/30/22 11/30/22 11/30/22 Range/Units 05:53 05:53 05:53 WBC (4.8-10.8) K/ul RBC (4.63-6.08) M/uL Hgb (14.0-18.0) g/dl Hct (40.1-51.0) % MCV (80.0-100.0) fL MCH (25.0-34.0) pg MCHC (32.0-36.0) g/dL RDW Std Deviation (36.4-46.3) fL RDW Coeff of [place] (11.5-14.5) % Plt Count (130-400) K/uL MPV (9.4-12.4) fL Immature Gran % (Auto) % Neut % (Auto) % Lymph % (Auto) % [place] % (Auto) % Eos % (Auto) % Baso % (Auto) % Neut # (Auto) (1.4-6.5) K/uL Lymph # (Auto) (1.2-3.4) K/uL [place] # (Auto) (0.24-0.82) K/uL Eos # (Auto) (0-0.50) K/uL Baso # (Auto) (0-0.2) K/uL Immature Gran # (Auto) (0.00-0.02) K/uL Sodium 139 (136-145) mmol/L Potassium 4.0 (3.5-5.1) mmol/L Chloride 107 (98-107) mmol/L Carbon Dioxide 26 (21-32) mmol/L Anion Gap 6 (3-11) BUN 23 (6-23) mg/dl Creatinine 1.27 (0.6-1.4) mg/dl Est Cr Clr Drug Dosing 41.1 ml/min Est GFR ( Amer) 59.3 ml/min Est GFR (Non-Af Amer) 51.2 ml/min BUN/Creatinine Ratio 18.1 (10-20) Glucose 119 H (70-99(Fasting)) mg/dl POC Glucose (70-99) mg/dl Estimat Average Glucose 108 mg/dl Hemoglobin A1c 5.4 (4.5-5.6) % Calcium 8.7 (8.5-10.1) mg/dl Phosphorus (2.5-4.9) mg/dl Magnesium (1.7-2.4) mg/dl Troponin I High Sens 91223.7 H* D (0-20) pg/ml LDL Cholesterol Direct 83 mg/dl Nasal Screen MRSA (PCR) (Negative) 11/30/22 11/29/22 11/29/22 Range/Units 05:53 22:33 22:33 WBC 10.12 (4.8-10.8) K/ul RBC 3.60 L (4.63-6.08) M/uL Hgb 11.7 L 12.1 L (14.0-18.0) g/dl Hct 32.9 L (40.1-51.0) % MCV 91.4 (80.0-100.0) fL MCH 32.5 (25.0-34.0) pg MCHC 35.6 (32.0-36.0) g/dL RDW Std Deviation 45.5 (36.4-46.3) fL RDW Coeff of [place] 13.5 (11.5-14.5) % Plt Count 277 (130-400) K/uL MPV 8.7 L (9.4-12.4) fL Immature Gran % (Auto) 0.6 % Neut % (Auto) 77.8 % Lymph % (Auto) 9.1 % [place] % (Auto) 12.0 % Eos % (Auto) 0.2 % Baso % (Auto) 0.3 % Neut # (Auto) 7.88 H (1.4-6.5) K/uL Lymph # (Auto) 0.92 L (1.2-3.4) K/uL [place] # (Auto) 1.21 H (0.24-0.82) K/uL Eos # (Auto) 0.02 (0-0.50) K/uL Baso # (Auto) 0.03 (0-0.2) K/uL Immature Gran # (Auto) 0.06 H (0.00-0.02) K/uL Sodium (136-145) mmol/L Potassium (3.5-5.1) mmol/L Chloride (98-107) mmol/L Carbon Dioxide (21-32) mmol/L Anion Gap (3-11) BUN (6-23) mg/dl Creatinine (0.6-1.4) mg/dl Est Cr Clr Drug Dosing ml/min Est GFR ( Amer) ml/min Est GFR (Non-Af Amer) ml/min BUN/Creatinine Ratio (10-20) Glucose (70-99(Fasting)) mg/dl POC Glucose (70-99) mg/dl Estimat Average Glucose mg/dl Hemoglobin A1c (4.5-5.6) % Calcium (8.5-10.1) mg/dl Phosphorus (2.5-4.9) mg/dl Magnesium (1.7-2.4) mg/dl Troponin I High Sens 795518.5 H* D (0-20) pg/ml LDL Cholesterol Direct mg/dl Nasal Screen MRSA (PCR) (Negative) 01/05/1611/29/22 11/29/22 Range/Units 21:34 18:05 18:05 WBC (4.8-10.8) K/ul RBC (4.63-6.08) M/uL Hgb (14.0-18.0) g/dl Hct (40.1-51.0) % MCV (80.0-100.0) fL MCH (25.0-34.0) pg MCHC (32.0-36.0) g/dL RDW Std Deviation (36.4-46.3) fL RDW Coeff of [place] (11.5-14.5) % Plt Count (130-400) K/uL MPV (9.4-12.4) fL Immature Gran % (Auto) % Neut % (Auto) % Lymph % (Auto) % [place] % (Auto) % Eos % (Auto) % Baso % (Auto) % Neut # (Auto) (1.4-6.5) K/uL Lymph # (Auto) (1.2-3.4) K/uL [place] # (Auto) (0.24-0.82) K/uL Eos # (Auto) (0-0.50) K/uL Baso # (Auto) (0-0.2) K/uL Immature Gran # (Auto) (0.00-0.02) K/uL Sodium Cancelled 138 (136-145) mmol/L Potassium Cancelled 4.5 D (3.5-5.1) mmol/L Chloride Cancelled 104 (98-107) mmol/L Carbon Dioxide Cancelled 27 (21-32) mmol/L Anion Gap Cancelled 7 (3-11) BUN Cancelled 25 H (6-23) mg/dl Creatinine Cancelled 1.21 (0.6-1.4) mg/dl Est Cr Clr Drug Dosing Cancelled 43.2 ml/min Est GFR ( Amer) Cancelled 62.9 ml/min Est GFR (Non-Af Amer) Cancelled 54.3 ml/min BUN/Creatinine Ratio Cancelled 20.7 H (10-20) Glucose Cancelled 153 H (70-99(Fasting)) mg/dl POC Glucose 137 H (70-99) mg/dl Estimat Average Glucose mg/dl Hemoglobin A1c (4.5-5.6) % Calcium Cancelled 9.4 (8.5-10.1) mg/dl Phosphorus 2.1 L (2.5-4.9) mg/dl Magnesium 1.7 (1.7-2.4) mg/dl Troponin I High Sens 893650.3 H* D (0-20) pg/ml LDL Cholesterol Direct mg/dl Nasal Screen MRSA (PCR) (Negative) 11/29/22 11/29/22 Range/Units 16:38 16:10 WBC (4.8-10.8) K/ul RBC (4.63-6.08) M/uL Hgb (14.0-18.0) g/dl Hct (40.1-51.0) % MCV (80.0-100.0) fL MCH (25.0-34.0) pg MCHC (32.0-36.0) g/dL RDW Std Deviation (36.4-46.3) fL RDW Coeff of [place] (11.5-14.5) % Plt Count (130-400) K/uL MPV (9.4-12.4) fL Immature Gran % (Auto) % Neut % (Auto) % Lymph % (Auto) % [place] % (Auto) % Eos % (Auto) % Baso % (Auto) % Neut # (Auto) (1.4-6.5) K/uL Lymph # (Auto) (1.2-3.4) K/uL [place] # (Auto) (0.24-0.82) K/uL Eos # (Auto) (0-0.50) K/uL Baso # (Auto) (0-0.2) K/uL Immature Gran # (Auto) (0.00-0.02) K/uL Sodium (136-145) mmol/L Potassium (3.5-5.1) mmol/L Chloride (98-107) mmol/L Carbon Dioxide (21-32) mmol/L Anion Gap (3-11) BUN (6-23) mg/dl Creatinine (0.6-1.4) mg/dl Est Cr Clr Drug Dosing ml/min Est GFR ( Amer) ml/min Est GFR (Non-Af Amer) ml/min BUN/Creatinine Ratio (10-20) Glucose (70-99(Fasting)) mg/dl POC Glucose 157 H (70-99) mg/dl Estimat Average Glucose mg/dl Hemoglobin A1c (4.5-5.6) % Calcium (8.5-10.1) mg/dl Phosphorus (2.5-4.9) mg/dl Magnesium (1.7-2.4) mg/dl Troponin I High Sens (0-20) pg/ml LDL Cholesterol Direct mg/dl Nasal Screen MRSA (PCR) Negative (Negative) Diagnostic Findings Chest X-Ray 11/29/22 05:49 XR chest 1V portable CLINICAL HISTORY: Chest pain, nonspecific COMPARISON STUDY: PET/CT April 06, 2018. FINDINGS: Lung volumes are normal. Lungs are clear. There is no pneumothorax or pleural effusion. Cardiac size is normal. Mediastinal contours are normal. There is no evidence for pulmonary edema. Incidental note is made of severe bilateral glenohumeral joint osteoarthritis. IMPRESSION: No acute cardiopulmonary findings. ACT 112: Negative or not required by law. Electronically signed by: Jose Vasquez M.D. 11/29/2022 7:[address] 11/29/22 06:35 CT OF THE CHEST WITH IV CONTRAST CLINICAL HISTORY: chest pain, abnormal CXR COMPARISON STUDY: PET/CT April 06, 2018. TECHNIQUE: Following IV administration of 88 mL of Optiray, helical axial images of the chest were obtained. Sagittal and coronal reconstructions were viewed as well as maximal intensity projections on an independent 3-D workstation. Automated exposure control was utilized for the study. A dose lowering technique was utilized adhering to the principles of ALARA. CT DOSE: 640.73 mGy.cm FINDINGS: There is no thoracic aortic dissection. Mild cardiomegaly is noted. Note is made of hypoenhancement of the interventricular septum, left ventricular apex and distal free wall. There is no pericardial effusion. No central pulmonary embolus. No pneumothorax or pleural effusion is present. There is no consolidation to suggest pneumonia. A few small right lower lobe pulmonary nodules are unchanged since CT of April 06, 2018. A sclerotic lesion within the left scapular tip has slightly increased since prior PET/CT. This is indeterminate. There is a lateral segment hepatic cyst. Gallstones within the gallbladder noted. Gallbladder is partially imaged. IMPRESSION: 1. Hypoenhancement of the interventricular septum and left ventricular apex and distal free wall. This could be correlated with cardiac enzymes to exclude acute myocardial infarction. 2. No consolidation to suggest pneumonia. 3. Cholelithiasis. ACT 112: Negative or not required by law. Electronically signed by: Jose Vasquez M.D. 11/29/2022 7:46 AM
--- NOTE | 2022-11-30 15:35 | Cardiology Progress Note ---
Date of Service November 30, 2022 Assessment & Plan (1) ST elevation (STEMI) myocardial infarction involving left anterior de scending coronary artery: (2) CAD (coronary artery disease): Plan: Cardiac cath report from 11/29/2022 1. Acute 100% earlymid LAD occlusion 2. Severe nonculprit coronary artery disease 98% distal dominant circumflex with VEGA II-III flow in left PDA Small nondominant RCA with 60 to 70% proximal 30% proximal left main Small D2 95% proximal 80% ostial OM 3 3. Normal intracardiac filling pressure 4. Successful PCI of proximal to mid LAD with 2 overlapping drug-eluting stents (3.5 x 30, 2.5 x 30 mm [place] Postdilated with 4.0 NC). (3) CKD (chronic kidney disease): (4) Ischemic cardiomyopathy: (5) Hypertension: Plan Status post successful PCI to the mid LAD and distal circumflex in the setting of acute anterior wall ST segment elevation DC after presenting with chest pain and new left bundle branch block Currently without complaints Post PCI Integrilin has been completed Continue dual antiplatelet therapy along with atorvastatin, losartan and metoprolol Given the patient's age and LAD STEMI should be monitored on telemetry for 72 hours postevent EF severely reduced at 30 to 35% with hypokinesis of the LAD territory, hopefully, will resolve with time We will likely repeat limited echocardiogram prior to discharge to update EF and need for possible LifeVest should his EF remains less than 35% Admission and Anticipated Discharge Date Admission Date: November 29, 2022 Subjective Patient seen and examined. Chart reviewed. Telemetry reviewed. Multiple family members at bedside. Currently states he feels well, seated in chair. No further chest discomfort since PCI. Review of Systems Review of Systems: All systems reviewed & are unremarkable except as noted in HPI & below Physical Exam Physical Exam: General: Awake, alert and oriented x 3. No acute distress. HEENT: Normocephalic, atraumatic. Pupils equal, round and reactive to light and accommodation. Extraocular muscles are intact. Anicteric sclera. Moist mucous membranes. Neck: No JVD. No bruit. Cardiovascular: Regular. Positive S-4. Normal S-1 and S-2. No S-3. No murmurs or rubs. Pulmonary: Clear to auscultation B/L. No rales, rhonchi or wheezing Abdomen: Bowel sounds x 4, soft. No rebound, guarding or tenderness. No organomegaly. Extremities: No clubbing, cyanosis or edema. +2 pedal pulses bilaterally. Skin: Warm and dry. Results & Data ([facility]) Vital Signs (Past 12 Hours) Vital Signs Temp Pulse Pulse Resp BP BP Pulse Ox 11/30/22 11:34 37.9 C H 74 21 115/69 98 11/30/22 08:00 84 11/30/22 06:01 77 19 126/68 99 11/30/22 05:00 72 12 124/70 96 11/30/22 04:00 68 15 97 11/30/22 04:00 104/61 O2 Del Method 11/30/22 11:34 Room Air 11/30/22 08:00 11/30/22 06:01 11/30/22 05:00 11/30/22 04:00 11/30/22 04:00
[2022-12-01 04:53] LABS: Basophils # (auto) 0.03 K/uL (0-0.2); Basophils % (auto) 0.2 %; Eosinophils # (auto) 0.01 K/uL (0-0.50); Eosinophils % (auto) 0.1 %; Hematocrit (blood only) 34.1 % (40.1-51.0); Hemoglobin 12.1 g/dl (14.0-18.0); Immature Granulocytes # (auto) 0.09 K/uL (0.00-0.02); Immature Granulocytes % (auto) 0.7 %; Lymphocytes # (auto) 1.04 K/uL (1.2-3.4); Mean Corpuscular Hemoglobin 32.9 pg (25.0-34.0); Mean Corpuscular Hgb Conc 35.5 g/dL (32.0-36.0); Mean Corpuscular Volume 92.7 fL (80.0-100.0); Mean Platelet Volume 8.8 fL (9.4-12.4); Monocytes # (auto) 1.72 K/uL (0.24-0.82); Monocytes % (auto) 13.3 %; Neutrophils # (auto) 10.04 K/uL (1.4-6.5); Neutrophils % (auto) 77.7 %; Platelet Count 291 K/uL (130-400); RDW Coefficient of Variation 13.7 % (11.5-14.5); RDW Standard Deviation 46.8 fL (36.4-46.3); Red Blood Count 3.68 M/uL (4.63-6.08); White Blood Count 12.93 K/ul (4.8-10.8)
[2022-12-01 05:10] LABS: BUN Creatinine Ratio 19.7 (10-20); Creatinine Clr Calc Pharmacy 30.2 ml/min; Est GFR (African American) 40.8 ml/min; Est GFR (Non-African American) 35.2 ml/min; Potassium 3.9 mmol/L (3.5-5.1)
[2022-12-01] MEDS: METOPROLOL TARTRATE 25 MG TAB PO SCH ×2 (08:16→20:36)
[2022-12-01] MEDS: TICAGRELOR 90 MG TAB PO SCH ×2 (08:16→20:36)
[2022-12-01] MEDS: ATORVASTATIN 40 MG TAB PO SCH (08:17)
[2022-12-01] MEDS: PANTOprazole 40 MG in SYRINGE 0 ML IV SCH (08:17)
[2022-12-01] MEDS: ASPIRIN 81 MG ECTAB PO SCH (08:17)
--- NOTE | 2022-12-01 08:51 | Gastroenterology Progress Note ---
Date of Service December 01, 2022 Assessment & Plan (1) Hematochezia: Plan: No further bleeding seen. With his coronary artery disease and recent AL I don't plan evaluation unless life saving. Will sign off. Please reconsult if conditions change Admission and Anticipated Discharge Date Admission Date: November 29, 2022 Subjective No further bleeding. Had small bowel movement this morning without blood. H/H stable. Cath findings noted Physical Exam Physical Exam: He looks well Constitutional: WD/WN, vitals as above Results & Data ([facility]) Vital Signs (Past 12 Hours) Vital Signs Temp Pulse Pulse Resp BP BP Pulse Ox 12/01/22 07:42 73 16 12/01/22 07:42 104/55 L 98 12/01/22 07:40 73 18 12/01/22 07:00 70 15 12/01/22 06:00 77 18 12/01/22 05:00 75 16 12/01/22 07:46 37.2 C 12/01/22 03:31 80 23 121/61 12/01/22 04:32 36.7 C 12/01/22 00:35 64 11/30/22 23:19 36.5 C 67 18 94/50 L 94 O2 Del Method 12/01/22 07:42 12/01/22 07:42 12/01/22 07:40 12/01/22 07:00 12/01/22 06:00 12/01/22 05:00 12/01/22 07:46 12/01/22 03:31 12/01/22 04:32 12/01/22 00:35 11/30/22 23:19 Room Air
[2022-12-01] MEDS: LOSARTAN POTASSIUM 25 MG TAB PO SCH ×2 (10:05→20:36)
--- NOTE | 2022-12-01 10:19 | Hospitalist Progress Note ---
Date of Service December 01, 2022 Assessment & Plan (1) ST elevation (STEMI) myocardial infarction involving left anterior de scending coronary artery: (2) CAD (coronary artery disease): (3) Hypertension: (4) Hyperlipidemia: (5) S/P cardiac catheterization: Plan: Presented to the ED with crushing chest pain. EKG showed new onset left bundle branch block Stat echo in the ED showed reduced EF of 30 to 35% along with large sized apical, segmental, anteroseptal, anterior and inferior wall abnormality with hypokinesis to akinesis of the segments. Patient underwent cardiac catheterization on 11/29/2022 sp stenting x 2 in the LAD and x1 in the distal circumflex Was admitted to ICU for closer monitoring No overnight events on the telemetry. Plan; Continue on dual antiplatelet with aspirin and Brilinta. Continue on metoprolol and losartan. -Continue to monitor on telemetry. -Cardiac rehab. -As per cardiology, patient will likely require limited echo to follow-up on his EF. Bright red blood per rectum -Patient reports painless bright red blood per rectum. -Hemoglobin is stable at 12 after slight initial downtrend. -Currently on dual antiplatelet agents -GI consulted; no further work-up at present time. Continue on Protonix once daily. Chronic conditions; HypertensionHome lisinoprilhydrochlorothiazide stopped. Started on losartan and metoprolol. Cardizem was stopped due to low EF. HyperlipidemiaLipitor's dose increased to high-dose to 40 mg once daily. CODE: Full code- Dispo: From home, DC back home after clearance from cardiology. Admission and Anticipated Discharge Date Admission Date: November 29, 2022 Subjective Patient seen and examined at bedside. He is lying in the bed comfortably; not in any distress. He reports that there has not been any recurrence of chest pain. Denies any shortness of breath; saturating well in room air. Review of Systems Review of Systems: All systems reviewed & are unremarkable except as noted in Subjective Physical Exam Physical Exam: Constitutional: WD/WN, vitals as above, NAD, sitting up in bed, pleasant, conversing easily Respiratory: normal respiratory effort, lungs clear to auscultation, no wheeze, rales, rhonchi. Normal insp/exp effort, no accessory muscle use Cardiovascular: RRR, no murmur, no edema Vessels: no JVD or carotid bruit Chest: normal inspection of chest Abdomen: normal bowel sounds, soft, nontender, no hepatosplenomegaly Musculoskeletal: no cyanosis or clubbing, extremities motor strength 5/5 Skin: no rashes, warm and dry normal turgor Neurologic: PERRL, EOMI, accommodation nl, no face palsy, no dysarthria CN's II- XI intact bilaterally and moves all extremities Psychiatric: A+Ox3, euthymic affect Lymphatic: no cervical or axillary lymphadenopathy : deferred Results & Data Results & Data ([facility]) Vital Signs (Past 12 Hours) Vital Signs Temp Pulse Pulse Resp BP BP Pulse Ox 12/01/22 07:42 73 16 12/01/22 07:42 104/55 L 98 12/01/22 07:40 73 18 12/01/22 07:00 70 15 12/01/22 06:00 77 18 12/01/22 05:00 75 16 12/01/22 07:46 37.2 C 12/01/22 03:31 80 23 121/61 12/01/22 04:32 36.7 C 12/01/22 00:35 64 11/30/22 23:19 36.5 C 67 18 94/50 L 94 O2 Del Method 12/01/22 07:42 12/01/22 07:42 12/01/22 07:40 12/01/22 07:00 12/01/22 06:00 12/01/22 05:00 12/01/22 07:46 12/01/22 03:31 12/01/22 04:32 12/01/22 00:35 11/30/22 23:19 Room Air Laboratory Results Laboratory Results WBC 12.93 K/ul (4.8-10.8) H 12/01/22 04:31 RBC 3.68 M/uL (4.63-6.08) L 12/01/22 04:31 Hgb 12.1 g/dl (14.0-18.0) L 12/01/22 04:31 Hct 34.1 % (40.1-51.0) L 12/01/22 04:31 MCV 92.7 fL (80.0-100.0) 12/01/22 04:31 MCH 32.9 pg (25.0-34.0) 12/01/22 04:31 MCHC 35.5 g/dL (32.0-36.0) 12/01/22 04:31 RDW Std Deviation 46.8 fL (36.4-46.3) H 12/01/22 04:31 RDW Coeff of [place] 13.7 % (11.5-14.5) 12/01/22 04:31 Plt Count 291 K/uL (130-400) 12/01/22 04:31 MPV 8.8 fL (9.4-12.4) L 12/01/22 04:31 Immature Gran % (Auto) 0.7 % 12/01/22 04:31 Neut % (Auto) 77.7 % 12/01/22 04:31 Lymph % (Auto) 8.0 % 12/01/22 04:31 [place] % (Auto) 13.3 % 12/01/22 04:31 Eos % (Auto) 0.1 % 12/01/22 04:31 Baso % (Auto) 0.2 % 12/01/22 04:31 Neut # (Auto) 10.04 K/uL (1.4-6.5) H 12/01/22 04:31 Lymph # (Auto) 1.04 K/uL (1.2-3.4) L 12/01/22 04:31 [place] # (Auto) 1.72 K/uL (0.24-0.82) H 12/01/22 04:31 Eos # (Auto) 0.01 K/uL (0-0.50) 12/01/22 04:31 Baso # (Auto) 0.03 K/uL (0-0.2) 12/01/22 04:31 Immature Gran # (Auto) 0.09 K/uL (0.00-0.02) H 12/01/22 04:31 PT 10.3 Seconds (9.0-12.0) 11/29/22 05:40 INR 1.0 (0.9-1.1) 11/29/22 05:40 APTT 25.5 Seconds (21.0-31.0) 11/29/22 05:40 PTT Ratio 0.9 11/29/22 05:40 Activ Coag Time Kaolin 323 SECONDS (94-140) H 11/29/22 09:23 Sodium 137 mmol/L (136-145) 12/01/22 04:31 Potassium 3.9 mmol/L (3.5-5.1) 12/01/22 04:31 Chloride 104 mmol/L (98-107) 12/01/22 04:31 Carbon Dioxide 25 mmol/L (21-32) 12/01/22 04:31 Anion Gap 8 (3-11) 12/01/22 04:31 BUN 34 mg/dl (6-23) H 12/01/22 04:31 Creatinine 1.73 mg/dl (0.6-1.4) H D 12/01/22 04:31 Est Cr Clr Drug Dosing 30.2 ml/min 12/01/22 04:31 Est GFR ( Amer) 40.8 ml/min 12/01/22 04:31 Est GFR (Non-Af Amer) 35.2 ml/min 12/01/22 04:31 BUN/Creatinine Ratio 19.7 (10-20) 12/01/22 04:31 Glucose 113 mg/dl (70-99(Fasting)) H 12/01/22 04:31 POC Glucose 106 mg/dl (70-99) H 11/30/22 11:14 Estimat Average Glucose 108 mg/dl 11/30/22 05:53 Hemoglobin A1c 5.4 % (4.5-5.6) 11/30/22 05:53 Calcium 9.0 mg/dl (8.5-10.1) 12/01/22 04:31 Phosphorus 3.4 mg/dl (2.5-4.9) D 11/30/22 08:00 Magnesium 1.7 mg/dl (1.7-2.4) 11/30/22 08:00 Total Bilirubin 0.6 mg/dl (0.2-1.0) 11/29/22 05:40 AST 20 U/L (13-39) 11/29/22 05:40 ALT 15 U/L (7-52) 11/29/22 05:40 Alkaline Phosphatase 66 U/L (34-104) 11/29/22 05:40 Troponin I High Sens 05285.7 pg/ml (0-20) H* D 11/30/22 05:53 Total Protein 7.5 gm/dl (6.0-8.3) 11/29/22 05:40 Albumin 4.1 gm/dl (3.4-5.0) 11/29/22 05:40 Globulin 3.4 gm/dl (2.5-4.0) 11/29/22 05:40 Albumin/Globulin Ratio 1.2 (0.9-2) 11/29/22 05:40 Triglycerides 147 mg/dl (0-150) 11/29/22 05:40 Cholesterol 187 mg/dl (0-200) 11/29/22 05:40 LDL Cholesterol Direct 83 mg/dl 11/30/22 05:53 LDL Cholesterol, Calc 109 mg/dl 11/29/22 05:40 VLDL Cholesterol, Calc 29 mg/dl (0-30) 11/29/22 05:40 HDL Cholesterol 49 mg/dl 11/29/22 05:40 Cholesterol/HDL Ratio 3.8 (0-5) 11/29/22 05:40 Lipase 73 U/L (11-82) 11/29/22 05:40 Urine Color Yellow 11/29/22 06:29 Urine Appearance Clear (Clear) 11/29/22 06:29 Urine pH 7.0 (4.5-7.5) 11/29/22 06:29 Ur Specific [place] 1.017 (1.000-1.030) 11/29/22 06:29 Urine Protein 2+ (Negative) H 11/29/22 06:29 Urine Glucose (UA) Negative (Negative) 11/29/22 06:29 Urine Ketones Negative (Negative) 11/29/22 06:29 Urine Blood Negative (Negative) 11/29/22 06:29 Urine Nitrite Negative (Negative) 11/29/22 06:29 Urine Bilirubin Negative (Negative) 11/29/22 06:29 Urine Urobilinogen Negative (Negative) 11/29/22 06:29 Ur Leukocyte Esterase Negative (Negative) 11/29/22 06:29 Urine WBC (Auto) 1-5 /hpf (0-5) 11/29/22 06:29 Urine RBC (Auto) 0-4 /hpf (0-4) 11/29/22 06:29 U Hyaline Cast (Auto) 1-5 /lpf (0-5) 11/29/22 06:29 U Epithel Cells (Auto) 5-10 /lpf (0-5) H 01/06/23 06:29 Urine Bacteria (Auto) Negative (Negative) 11/29/22 06:29 Nasal Screen MRSA (PCR) Negative (Negative) 11/29/22 16:10 SARS-CoV-2, RNA, NAAT NEGATIVE (NEGATIVE) 11/29/22 06:03 Impressions Chest X-Ray 11/29/22 05:49 XR chest 1V portable CLINICAL HISTORY: Chest pain, nonspecific COMPARISON STUDY: PET/CT April 06, 2018. FINDINGS: Lung volumes are normal. Lungs are clear. There is no pneumothorax or pleural effusion. Cardiac size is normal. Mediastinal contours are normal. There is no evidence for pulmonary edema. Incidental note is made of severe bilateral glenohumeral joint osteoarthritis. IMPRESSION: No acute cardiopulmonary findings. ACT 112: Negative or not required by law. Electronically signed by: Jose Vasquez M.D. 11/29/2022 7:[address] 11/29/22 06:35 CT OF THE CHEST WITH IV CONTRAST CLINICAL HISTORY: chest pain, abnormal CXR COMPARISON STUDY: PET/CT April 06, 2018. TECHNIQUE: Following IV administration of 88 mL of Optiray, helical axial images of the chest were obtained. Sagittal and coronal reconstructions were viewed as well as maximal intensity projections on an independent 3-D workstation. Automated exposure control was utilized for the study. A dose lowering technique was utilized adhering to the principles of ALARA. CT DOSE: 640.73 mGy.cm FINDINGS: There is no thoracic aortic dissection. Mild cardiomegaly is noted. Note is made of hypoenhancement of the interventricular septum, left ventricular apex and distal free wall. There is no pericardial effusion. No central pulmonary embolus. No pneumothorax or pleural effusion is present. There is no consolidation to suggest pneumonia. A few small right lower lobe pulmonary nodules are unchanged since CT of April 06, 2018. A sclerotic lesion within the left scapular tip has slightly increased since prior PET/CT. This is indeterminate. There is a lateral segment hepatic cyst. Gallstones within the gallbladder noted. Gallbladder is partially imaged. IMPRESSION: 1. Hypoenhancement of the interventricular septum and left ventricular apex and distal free wall. This could be correlated with cardiac enzymes to exclude acute myocardial infarction. 2. No consolidation to suggest pneumonia. 3. Cholelithiasis. ACT 112: Negative or not required by law. Electronically signed by: Jose Vasquez M.D. 11/29/2022 7:46 AM
--- NOTE | 2022-12-01 10:40 | Cardiology Progress Note ---
Date of Service December 01, 2022 Assessment & Plan (1) ST elevation (STEMI) myocardial infarction involving left anterior de scending coronary artery: (2) CAD (coronary artery disease): Plan: Cardiac cath report from 11/29/2022 1. Acute 100% earlymid LAD occlusion 2. Severe nonculprit coronary artery disease 98% distal dominant circumflex with VEGA II-III flow in left PDA Small nondominant RCA with 60 to 70% proximal 30% proximal left main Small D2 95% proximal 80% ostial OM 3 3. Normal intracardiac filling pressure 4. Successful PCI of proximal to mid LAD with 2 overlapping drug-eluting stents (3.5 x 30, 2.5 x 30 mm [place] Postdilated with 4.0 NC). (3) CKD (chronic kidney disease): (4) Ischemic cardiomyopathy: (5) Hypertension: Plan Status post successful PCI to the mid LAD and distal circumflex in the setting of acute anterior wall ST segment elevation MD after presenting with chest pain and new left bundle branch block Currently without complaints Post PCI Integrilin has been completed Continue dual antiplatelet therapy along with atorvastatin, losartan and metoprolol Given the patient's age and LAD STEMI should be monitored on telemetry for 72 hours postevent EF severely reduced at 30 to 35% with hypokinesis of the LAD territory, hopefully, will resolve with time We will repeat limited echo in the a.m. for systolic function and determine whether or not LifeVest will be necessary on discharge Admission and Anticipated Discharge Date Admission Date: November 29, 2022 Subjective Patient seen and examined. Chart reviewed. Telemetry reviewed. Out of bed in chair without complaint. Multiple family members at the bedside. Review of Systems Review of Systems: All systems reviewed & are unremarkable except as noted in HPI & below Physical Exam Physical Exam: General: Awake, alert and oriented x 3. No acute distress. HEENT: Normocephalic, atraumatic. Pupils equal, round and reactive to light and accommodation. Extraocular muscles are intact. Anicteric sclera. Moist mucous membranes. Neck: No JVD. No bruit. Cardiovascular: Regular. Positive S-4. Normal S-1 and S-2. No S-3. No murmurs or rubs. Pulmonary: Clear to auscultation B/L. No rales, rhonchi or wheezing Abdomen: Bowel sounds x 4, soft. No rebound, guarding or tenderness. No organomegaly. Extremities: No clubbing, cyanosis or edema. +2 pedal pulses bilaterally. Skin: Warm and dry. Results & Data ([facility]) Vital Signs (Past 12 Hours) Vital Signs Temp Pulse Pulse Resp BP BP Pulse Ox 12/01/22 07:42 73 16 12/01/22 07:42 104/55 L 98 12/01/22 07:40 73 18 12/01/22 07:00 70 15 12/01/22 06:00 77 18 12/01/22 05:00 75 16 12/01/22 07:46 37.2 C 12/01/22 03:31 80 23 121/61 12/01/22 04:32 36.7 C 12/01/22 00:35 64 11/30/22 23:19 36.5 C 67 18 94/50 L 94 O2 Del Method 12/01/22 07:42 12/01/22 07:42 12/01/22 07:40 12/01/22 07:00 12/01/22 06:00 12/01/22 05:00 12/01/22 07:46 12/01/22 03:31 12/01/22 04:32 12/01/22 00:35 11/30/22 23:19 Room Air
[2022-12-02 05:14] LABS: Basophils # (auto) 0.04 K/uL (0-0.2); Basophils % (auto) 0.4 %; Eosinophils # (auto) 0.04 K/uL (0-0.50); Eosinophils % (auto) 0.4 %; Hematocrit (blood only) 28.6 % (40.1-51.0); Hemoglobin 10.3 g/dl (14.0-18.0); Immature Granulocytes # (auto) 0.07 K/uL (0.00-0.02); Immature Granulocytes % (auto) 0.7 %; Lymphocytes # (auto) 0.97 K/uL (1.2-3.4); Lymphocytes % (auto) 9.7 %; Mean Corpuscular Hemoglobin 32.5 pg (25.0-34.0); Mean Corpuscular Volume 90.2 fL (80.0-100.0); Mean Platelet Volume 9.1 fL (9.4-12.4); Neutrophils # (auto) 7.81 K/uL (1.4-6.5); Neutrophils % (auto) 77.8 %; Platelet Count 279 K/uL (130-400); RDW Coefficient of Variation 13.5 % (11.5-14.5); RDW Standard Deviation 45.1 fL (36.4-46.3); Red Blood Count 3.17 M/uL (4.63-6.08); White Blood Count 10.03 K/ul (4.8-10.8)
[2022-12-02 05:33] LABS: BUN Creatinine Ratio 24.6 (10-20); Calcium 8.5 mg/dl (8.5-10.1); Creatinine Clr Calc Pharmacy 29.2 ml/min; Est GFR (African American) 39.2 ml/min; Est GFR (Non-African American) 33.8 ml/min; Magnesium 1.9 mg/dl (1.7-2.4); Potassium 3.6 mmol/L (3.5-5.1)
--- NOTE | 2022-12-02 06:12 | Electrocardiogram Report ---
Test Reason : Blood Pressure : / mmHG Vent. Rate : 081 BPM Atrial Rate : 081 BPM P-R Int : 202 ms QRS Dur : 146 ms QT Int : 450 ms P-R-T Axes : 048 -28 084 degrees QTc Int : 522 ms Normal sinus rhythm Left bundle branch block Abnormal ECG When compared with ECG of 29-NOV-2022 13:29, No significant change Confirmed by Pedro Hill ([id number]) on 12/02/2022 6:12:26 AM Referred By: REFERRED SELF Confirmed By:Pedro Hill
[2022-12-02] MEDS: TICAGRELOR 90 MG TAB PO SCH ×2 (08:20→20:04)
[2022-12-02] MEDS: PANTOprazole 40 MG TAB PO SCH (08:20)
[2022-12-02] MEDS: ATORVASTATIN 40 MG TAB PO SCH (08:20)
[2022-12-02] MEDS: ASPIRIN 81 MG ECTAB PO SCH (08:20)
[2022-12-02] MEDS: METOPROLOL TARTRATE 25 MG TAB PO SCH ×2 (08:20→20:04)
--- NOTE | 2022-12-02 10:00 | Cardiology Progress Note ---
Date of Service December 02, 2022 Assessment & Plan (1) ST elevation (STEMI) myocardial infarction involving left anterior de scending coronary artery: (2) CAD (coronary artery disease): Plan: Cardiac cath report from 11/29/2022 1. Acute 100% earlymid LAD occlusion 2. Severe nonculprit coronary artery disease 98% distal dominant circumflex with VEGA II-III flow in left PDA Small nondominant RCA with 60 to 70% proximal 30% proximal left main Small D2 95% proximal 80% ostial OM 3 3. Normal intracardiac filling pressure 4. Successful PCI of proximal to mid LAD with 2 overlapping drug-eluting stents (3.5 x 30, 2.5 x 30 mm [place] Postdilated with 4.0 NC). (3) CKD (chronic kidney disease): (4) Ischemic cardiomyopathy: (5) Hypertension: Plan Status post successful PCI to the mid LAD and distal circumflex in the setting of acute anterior wall ST segment elevation MA after presenting with chest pain and new left bundle branch block Currently without complaints Post PCI Integrilin has been completed Continue dual antiplatelet therapy along with atorvastatin, losartan and metoprolol repeat echo this AM unchanged I personally faxed request to [facility] for fitting ok to d/c to home once LifeVest is in place Admission and Anticipated Discharge Date Admission Date: November 29, 2022 Subjective Pt seen and examined. Chart reviewed. Telemetry reviewed. Review of Systems Review of Systems: All systems reviewed & are unremarkable except as noted in HPI & below Physical Exam Physical Exam: General: Awake, alert and oriented x 3. No acute distress. HEENT: Normocephalic, atraumatic. Pupils equal, round and reactive to light and accommodation. Extraocular muscles are intact. Anicteric sclera. Moist mucous membranes. Neck: No JVD. No bruit. Cardiovascular: Regular. Positive S-4. Normal S-1 and S-2. No S-3. No murmurs or rubs. Pulmonary: Clear to auscultation B/L. No rales, rhonchi or wheezing Abdomen: Bowel sounds x 4, soft. No rebound, guarding or tenderness. No organomegaly. Extremities: No clubbing, cyanosis or edema. +2 pedal pulses bilaterally. Skin: Warm and dry. Results & Data ([facility]) Vital Signs (Past 12 Hours) Vital Signs Temp Pulse Pulse Resp BP BP Pulse Ox 12/02/22 07:46 37.0 C 81 16 131/72 97 12/02/22 06:40 82 12/02/22 04:00 36.6 C 72 18 112/72 96 12/01/22 23:12 84 17 123/65 O2 Del Method 12/02/22 07:46 Room Air 12/02/22 06:40 12/02/22 04:00 Room Air 12/01/22 23:12
--- NOTE | 2022-12-02 11:41 | Hospitalist Progress Note ---
Date of Service December 02, 2022 Assessment & Plan (1) ST elevation (STEMI) myocardial infarction involving left anterior de scending coronary artery: (2) CAD (coronary artery disease): (3) Hypertension: (4) Hyperlipidemia: (5) S/P cardiac catheterization: Plan: Presented to the ED with crushing chest pain. EKG showed new onset left bundle branch block Stat echo in the ED showed reduced EF of 30 to 35% along with large sized apical, segmental, anteroseptal, anterior and inferior wall abnormality with hypokinesis to akinesis of the segments. Patient underwent cardiac catheterization on 11/29/2022 sp stenting x 2 in the LAD and x1 in the distal circumflex Was admitted to ICU for closer monitoring No overnight events on the telemetry since admission. Follow-up limited echo done today which shows similar ejection fraction; no LV thrombus. Plan; Continue on dual antiplatelet with aspirin and Brilinta. Continue on metoprolol Losartan on hold due to rising creatinine. -Continue to monitor on telemetry. -Cardiac rehab. -LifeVest to be placed before discharge. Acute kidney injury Multifactorialcontrast-induced nephropathy, reduced EF and ARB We will hold losartan today. Obtain renal ultrasound, urine electrolytes, urinalysis. Follow-up BMP tomorrow AM. Bright red blood per rectum -Patient reports painless bright red blood per rectum. -Hemoglobin is stable at 12 after slight initial downtrend. -Currently on dual antiplatelet agents -GI consulted; no further work-up at present time. Continue on Protonix once daily. Chronic conditions; HypertensionHome lisinoprilhydrochlorothiazide stopped. Started on losartan and metoprolol. Cardizem was stopped due to low EF. HyperlipidemiaLipitor's dose increased to high-dose to 40 mg once daily. CODE: Full code- Dispo: PT OT ordered. Patient to get LifeVest as per cardiology. Continues to be hospitalized due to GIOVANNA. Admission and Anticipated Discharge Date Admission Date: November 29, 2022 Subjective Patient seen and examined at bedside. He is comfortable; not in any distress. Saturating well on room air. No overnight telemetry events. Review of Systems Review of Systems: All systems reviewed & are unremarkable except as noted in Subjective Physical Exam Physical Exam: Constitutional: WD/WN, vitals as above, NAD, sitting up in bed, pleasant, conversing easily Respiratory: normal respiratory effort, lungs clear to auscultation, no wheeze, rales, rhonchi. Normal insp/exp effort, no accessory muscle use Cardiovascular: RRR, no murmur, no edema Vessels: no JVD or carotid bruit Chest: normal inspection of chest Abdomen: normal bowel sounds, soft, nontender, no hepatosplenomegaly Musculoskeletal: no cyanosis or clubbing, extremities motor strength 5/5 Skin: no rashes, warm and dry normal turgor Neurologic: PERRL, EOMI, accommodation nl, no face palsy, no dysarthria CN's II- XI intact bilaterally and moves all extremities Psychiatric: A+Ox3, euthymic affect Lymphatic: no cervical or axillary lymphadenopathy : deferred Results & Data Results & Data ([facility]) Vital Signs (Past 12 Hours) Vital Signs Temp Pulse Pulse Resp BP Pulse Ox O2 Del Method 12/02/22 11:25 37.0 C 60 18 102/58 L 100 Room Air 12/02/22 07:46 37.0 C 81 16 131/72 97 Room Air 12/02/22 06:40 82 12/02/22 04:00 36.6 C 72 18 112/72 96 Room Air Laboratory Results Laboratory Results WBC 10.03 K/ul (4.8-10.8) 12/02/22 04:26 RBC 3.17 M/uL (4.63-6.08) L 12/02/22 04:26 Hgb 10.3 g/dl (14.0-18.0) L 12/02/22 04:26 Hct 28.6 % (40.1-51.0) L 12/02/22 04:26 MCV 90.2 fL (80.0-100.0) 12/02/22 04:26 MCH 32.5 pg (25.0-34.0) 12/02/22 04:26 MCHC 36.0 g/dL (32.0-36.0) 12/02/22 04:26 RDW Std Deviation 45.1 fL (36.4-46.3) 12/02/22 04:26 RDW Coeff of [place] 13.5 % (11.5-14.5) 12/02/22 04:26 Plt Count 279 K/uL (130-400) 12/02/22 04:26 MPV 9.1 fL (9.4-12.4) L 12/02/22 04:26 Immature Gran % (Auto) 0.7 % 12/02/22 04:26 Neut % (Auto) 77.8 % 12/02/22 04:26 Lymph % (Auto) 9.7 % 12/02/22 04:26 Holt % (Auto) 11.0 % 12/02/22 04:26 Eos % (Auto) 0.4 % 12/02/22 04:26 Baso % (Auto) 0.4 % 12/02/22 04:26 Neut # (Auto) 7.81 K/uL (1.4-6.5) H 12/02/22 04:26 Lymph # (Auto) 0.97 K/uL (1.2-3.4) L 12/02/22 04:26 Holt # (Auto) 1.10 K/uL (0.24-0.82) H 12/02/22 04:26 Eos # (Auto) 0.04 K/uL (0-0.50) 12/02/22 04:26 Baso # (Auto) 0.04 K/uL (0-0.2) 12/02/22 04:26 Immature Gran # (Auto) 0.07 K/uL (0.00-0.02) H 12/02/22 04:26 PT 10.3 Seconds (9.0-12.0) 11/29/22 05:40 INR 1.0 (0.9-1.1) 11/29/22 05:40 APTT 25.5 Seconds (21.0-31.0) 11/29/22 05:40 PTT Ratio 0.9 11/29/22 05:40 Activ Coag Time Kaolin 323 SECONDS (94-140) H 11/29/22 09:23 Sodium 137 mmol/L (136-145) 12/02/22 04:26 Potassium 3.6 mmol/L (3.5-5.1) 12/02/22 04:26 Chloride 107 mmol/L (98-107) 12/02/22 04:26 Carbon Dioxide 23 mmol/L (21-32) 12/02/22 04:26 Anion Gap 7 (3-11) 12/02/22 04:26 BUN 44 mg/dl (6-23) H 12/02/22 04:26 Creatinine 1.79 mg/dl (0.6-1.4) H 12/02/22 04:26 Est Cr Clr Drug Dosing 29.2 ml/min 12/02/22 04:26 Est GFR ( Amer) 39.2 ml/min 12/02/22 04:26 Est GFR (Non-Af Amer) 33.8 ml/min 12/02/22 04:26 BUN/Creatinine Ratio 24.6 (10-20) H 12/02/22 04:26 Glucose 111 mg/dl (70-99(Fasting)) H 12/02/22 04:26 POC Glucose 106 mg/dl (70-99) H 11/30/22 11:14 Estimat Average Glucose 108 mg/dl 11/30/22 05:53 Hemoglobin A1c 5.4 % (4.5-5.6) 11/30/22 05:53 Calcium 8.5 mg/dl (8.5-10.1) 12/02/22 04:26 Phosphorus 3.4 mg/dl (2.5-4.9) D 11/30/22 08:00 Magnesium 1.9 mg/dl (1.7-2.4) 12/02/22 04:26 Total Bilirubin 0.6 mg/dl (0.2-1.0) 11/29/22 05:40 AST 20 U/L (13-39) 11/29/22 05:40 ALT 15 U/L (7-52) 11/29/22 05:40 Alkaline Phosphatase 66 U/L (34-104) 11/29/22 05:40 Troponin I High Sens 42125.7 pg/ml (0-20) H* D 11/30/22 05:53 Total Protein 7.5 gm/dl (6.0-8.3) 11/29/22 05:40 Albumin 4.1 gm/dl (3.4-5.0) 11/29/22 05:40 Globulin 3.4 gm/dl (2.5-4.0) 11/29/22 05:40 Albumin/Globulin Ratio 1.2 (0.9-2) 11/29/22 05:40 Triglycerides 147 mg/dl (0-150) 11/29/22 05:40 Cholesterol 187 mg/dl (0-200) 11/29/22 05:40 LDL Cholesterol Direct 83 mg/dl 11/30/22 05:53 LDL Cholesterol, Calc 109 mg/dl 11/29/22 05:40 VLDL Cholesterol, Calc 29 mg/dl (0-30) 11/29/22 05:40 HDL Cholesterol 49 mg/dl 11/29/22 05:40 Cholesterol/HDL Ratio 3.8 (0-5) 11/29/22 05:40 Lipase 73 U/L (11-82) 11/29/22 05:40 Urine Color Yellow 11/29/22 06:29 Urine Appearance Clear (Clear) 11/29/22 06:29 Urine pH 7.0 (4.5-7.5) 11/29/22 06:29 Ur Specific [place] 1.017 (1.000-1.030) 11/29/22 06:29 Urine Protein 2+ (Negative) H 11/29/22 06:29 Urine Glucose (UA) Negative (Negative) 11/29/22 06:29 Urine Ketones Negative (Negative) 11/29/22 06:29 Urine Blood Negative (Negative) 11/29/22 06:29 Urine Nitrite Negative (Negative) 11/29/22 06:29 Urine Bilirubin Negative (Negative) 11/29/22 06:29 Urine Urobilinogen Negative (Negative) 11/29/22 06:29 Ur Leukocyte Esterase Negative (Negative) 11/29/22 06:29 Urine WBC (Auto) 1-5 /hpf (0-5) 11/29/22 06:29 Urine RBC (Auto) 0-4 /hpf (0-4) 11/29/22 06:29 U Hyaline Cast (Auto) 1-5 /lpf (0-5) 11/29/22 06:29 U Epithel Cells (Auto) 5-10 /lpf (0-5) H 11/29/22 06:29 Urine Bacteria (Auto) Negative (Negative) 11/29/22 06:29 Nasal Screen MRSA (PCR) Negative (Negative) 11/29/22 16:10 SARS-CoV-2, RNA, NAAT NEGATIVE (NEGATIVE) 11/29/22 06:03 Impressions Chest X-Ray 11/29/22 05:49 XR chest 1V portable CLINICAL HISTORY: Chest pain, nonspecific COMPARISON STUDY: PET/CT April 06, 2018. FINDINGS: Lung volumes are normal. Lungs are clear. There is no pneumothorax or pleural effusion. Cardiac size is normal. Mediastinal contours are normal. There is no evidence for pulmonary edema. Incidental note is made of severe bilateral glenohumeral joint osteoarthritis. IMPRESSION: No acute cardiopulmonary findings. ACT 112: Negative or not required by law. Electronically signed by: Jose Vasquez M.D. 11/29/2022 7:[address] 11/29/22 06:35 CT OF THE CHEST WITH IV CONTRAST CLINICAL HISTORY: chest pain, abnormal CXR COMPARISON STUDY: PET/CT April 06, 2018. TECHNIQUE: Following IV administration of 88 mL of Optiray, helical axial images of the chest were obtained. Sagittal and coronal reconstructions were viewed as well as maximal intensity projections on an independent 3-D workstation. Automated exposure control was utilized for the study. A dose lowering technique was utilized adhering to the principles of ALARA. CT DOSE: 640.73 mGy.cm FINDINGS: There is no thoracic aortic dissection. Mild cardiomegaly is noted. Note is made of hypoenhancement of the interventricular septum, left ventricular apex and distal free wall. There is no pericardial effusion. No central pulmonary embolus. No pneumothorax or pleural effusion is present. There is no consolidation to suggest pneumonia. A few small right lower lobe pulmonary nodules are unchanged since CT of April 06, 2018. A sclerotic lesion within the left scapular tip has slightly increased since prior PET/CT. This is ind eterminate. There is a lateral segment hepatic cyst. Gallstones within the gallbladder noted. Gallbladder is partially imaged. IMPRESSION: 1. Hypoenhancement of the interventricular septum and left ventricular apex and distal free wall. This could be correlated with cardiac enzymes to exclude acute myocardial infarction. 2. No consolidation to suggest pneumonia. 3. Cholelithiasis. ACT 112: Negative or not required by law. Electronically signed by: Jose Vasquez M.D. 11/29/2022 7:46 AM
--- NOTE | 2022-12-02 11:49 | Ultrasound Report ---
RENAL ULTRASOUND CLINICAL HISTORY: Acute kidney injury. COMPARISON STUDY: PET/CT April 06, 2018. TECHNIQUE: Sonography of the kidneys and the urinary bladder was performed. FINDINGS: The right kidney measures 10.6 cm in maximal dimension and the left measures 11.1 cm. There is no hydronephrosis. 2 cm right renal cyst is present. There is mild bilateral renal cortical thinn ing. Left kidney is partially obscured. Ureteral jets were not visualized. Bladder suboptimally asses sed given underdistention. IMPRESSION: No hydronephrosis. ACT 112: Negative or not required by law. Electronically signed by: Jose Vasquez M.D. 12/02/2022 11:48 AM
[2022-12-02 16:08] LABS: Appearance Urine Clear (Clear); Bacteria Urine Automated Negative (Negative); Bilirubin Urine Negative (Negative); Blood Urine Negative (Negative); Color Urine Yellow; Glucose Urine UA Negative (Negative); Ketones Urine Trace (Negative); Leukocyte Esterase Urine Negative (Negative); Nitrite Urine Negative (Negative); Protein Urine 1+ (Negative); RBC Urine Automated 0-4 /hpf (0-4); Specific Gravity Urine 1.022 (1.000-1.030); Urobilinogen Urine Negative (Negative)
[2022-12-02 16:30] LABS: Creatinine Urine Random 215.6 mg/dl; Urine Chloride < 15 mmol/L; Urine Potassium 61.1 mmol/L; Urine Sodium 11 mmol/L
[2022-12-03 00:23] VITALS: O2SAT 96
[2022-12-03 05:10] LABS: Basophils # (auto) 0.03 K/uL (0-0.2); Basophils % (auto) 0.4 %; Eosinophils # (auto) 0.24 K/uL (0-0.50); Hematocrit (blood only) 28.5 % (40.1-51.0); Hemoglobin 9.9 g/dl (14.0-18.0); Immature Granulocytes % (auto) 1.3 %; Lymphocytes # (auto) 0.99 K/uL (1.2-3.4); Lymphocytes % (auto) 12.6 %; Mean Corpuscular Hgb Conc 34.7 g/dL (32.0-36.0); Mean Corpuscular Volume 92.2 fL (80.0-100.0); Mean Platelet Volume 8.9 fL (9.4-12.4); Monocytes # (auto) 0.82 K/uL (0.24-0.82); Monocytes % (auto) 10.4 %; Neutrophils # (auto) 5.69 K/uL (1.4-6.5); Neutrophils % (auto) 72.3 %; Platelet Count 299 K/uL (130-400); RDW Coefficient of Variation 13.4 % (11.5-14.5); Red Blood Count 3.09 M/uL (4.63-6.08); White Blood Count 7.87 K/ul (4.8-10.8)
[2022-12-03 05:38] LABS: Bilirubin,Total 0.7 mg/dl (0.2-1.0); Calcium 8.4 mg/dl (8.5-10.1); Creatinine Clr Calc Pharmacy 31.1 ml/min; Est GFR (African American) 42.3 ml/min; Est GFR (Non-African American) 36.5 ml/min; Globulin 2.9 gm/dl (2.5-4.0); Potassium 4.1 mmol/L (3.5-5.1); Total Protein 5.9 gm/dl (6.0-8.3)
[2022-12-03] MEDS: ATORVASTATIN 40 MG TAB PO SCH (08:00)
[2022-12-03] MEDS: METOPROLOL TARTRATE 25 MG TAB PO SCH (08:00)
[2022-12-03] MEDS: PANTOprazole 40 MG TAB PO SCH (08:00)
[2022-12-03] MEDS: TICAGRELOR 90 MG TAB PO SCH (08:00)
[2022-12-03] MEDS: ASPIRIN 81 MG ECTAB PO SCH (08:00)
[2022-12-03 09:07] VITALS: TEMP 98.8
--- NOTE | 2022-12-03 10:31 | Cardiology Progress Note ---
Date of Service December 03, 2022 Assessment & Plan (1) ST elevation (STEMI) myocardial infarction involving left anterior d escending coronary artery: (2) CAD (coronary artery disease): Plan: Cardiac cath report from 11/29/2022 1. Acute 100% earlymid LAD occlusion 2. Severe nonculprit coronary artery disease 98% distal dominant circumflex with VEGA II-III flow in left PDA Small nondominant RCA with 60 to 70% proximal 30% proximal left main Small D2 95% proximal 80% ostial OM 3 3. Normal intracardiac filling pressure 4. Successful PCI of proximal to mid LAD with 2 overlapping drug-eluting stents (3.5 x 30, 2.5 x 30 mm Carlos Postdilated with 4.0 NC). (3) CKD (chronic kidney disease): (4) Ischemic cardiomyopathy: (5) Hypertension: Plan Status post successful PCI to the mid LAD and distal circumflex in the setting of acute anterior wall ST segment elevation [place] after presenting with chest pain and new left bundle branch block Currently without complaints Post PCI Integrilin has been completed Continue dual antiplatelet therapy along with atorvastatin, losartan and metoprolol repeat echo unchanged ok to d/c to home once LifeVest is in place Admission and Anticipated Discharge Date Admission Date: November 29, 2022 Subjective Pt seen and examined. Chart reviewed. Telemetry reviewed. Review of Systems Review of Systems: All systems reviewed & are unremarkable except as noted in HPI & below Physical Exam Physical Exam: General: Awake, alert and oriented x 3. No acute distress. HEENT: Normocephalic, atraumatic. Pupils equal, round and reactive to light and accommodation. Extraocular muscles are intact. Anicteric sclera. Moist mucous membranes. Neck: No JVD. No bruit. Cardiovascular: Regular. Positive S-4. Normal S-1 and S-2. No S-3. No murmurs or rubs. Pulmonary: Clear to auscultation B/L. No rales, rhonchi or wheezing Abdomen: Bowel sounds x 4, soft. No rebound, guarding or tenderness. No organomegaly. Extremities: No clubbing, cyanosis or edema. +2 pedal pulses bilaterally. Skin: Warm and dry. Results & Data ([facility]) Vital Signs (Past 12 Hours) Vital Signs Temp Pulse Pulse Resp BP BP Pulse Ox 12/03/22 09:00 66 18 12/03/22 08:30 73 22 12/03/22 08:00 80 18 12/03/22 08:00 124/73 12/03/22 07:30 77 21 12/03/22 07:00 73 19 12/03/22 09:06 66 12/03/22 07:00 37.1 C 96 12/03/22 03:40 37 C 81 22 115/67 96 12/03/22 00:00 37 C 76 16 111/61 96 O2 Del Method 12/03/22 09:00 12/03/22 08:30 12/03/22 08:00 12/03/22 08:00 12/03/22 07:30 12/03/22 07:00 12/03/22 09:06 12/03/22 07:00 Room Air 12/03/22 03:40 Room Air 12/03/22 00:00 Room Air
--- NOTE | 2022-12-03 12:17 | Discharge Summary ---
Date of Service December 03, 2022 Admission HPI Per Admitting Provider This is an 87-year-old male with PMHx of HTN, HLD, remote history of colon, prostate & skin cancer, CKD stage III, who presented to the ER with acute onset of chest pain which began around 4 AM which he initially rated as an 11/10. He got up in the middle the night to use the bathroom as he normally does however felt significant amount of chest pain and pressure at that time. It radiated down both of his arms. Denies any diaphoresis or shortness of breath at that time. Patient admits that earlier this week on Friday night he had a similar thing happen but the pain was not as significant. Pain was relieved by resting and belching, and was gone within 30 minutes. After receiving a dose of sublingual nitro in the ER his pain slightly improved. Bedside echocardiogram was performed by tour driver in the ER which showed anterior, anterior septal, and apical hypokinesis to akinesis. On EKG had newfound left bundle branch block. Heart alert was called and the patient was taken to the cardiac Special Education Paraeducator. He underwent TRINI placement x2 to the LAD, and another TRINI in the distal circumflex. He currently rates his chest pain as a 7/10 after cardiac catheterization. He is shaking throughout our conversation, reports that he does not have a history of a tremor. He is a little bit cold. Denies any radiation of pain down the arms. He denies any shortness of breath. Patient admits that he stopped taking baby aspirin approximately 6 months ago. He has been taking his vitamins, diltiazem and lisinopril/HCTZ as directed. Admission Exam Per Admitting Provider General: awake, alert, no apparent distress, + diffuse mild tremor Head: Normocephalic, atraumatic ENT: PERRL, EOMI, no pharyngeal exudate, mucous membranes moist Chest: Clear to auscultation, on room air, no adventitious breath sounds Cardiac: Regular rate and rhythm, no murmur, no JVD, normal peripheral pulses, good capillary refill Abdominal: NABS x 4 quadrants, soft, nondistended, nontender to palpation, no rebound or guarding Extremities: R TR band in place. + S/p TKA scars well healed bilaterally, Otherwise normal inspection, no peripheral edema or erythema, calfs nontender to palpation Psych: Normal mood and affect Neuro: AAO x 3, strength intact bilaterally and rated 5/5, no motor deficits, speech is clear, no peripheral sensory deficits Principal Diagnosis STEMI Acute blood loss anemia Ischemic cardiomyopathy GIOVANNA Discharge Exam Constitutional: WD/WN, vitals as above, NAD, sitting up in bed, pleasant, conversing easily Respiratory: normal respiratory effort, lungs clear to auscultation, no wheeze, rales, rhonchi. Normal insp/exp effort, no accessory muscle use Cardiovascular: RRR, no murmur, no edema Vessels: no JVD or carotid bruit Chest: normal inspection of chest Abdomen: normal bowel sounds, soft, nontender, no hepatosplenomegaly Musculoskeletal: no cyanosis or clubbing, extremities motor strength 5/5 Skin: no rashes, warm and dry normal turgor Neurologic: PERRL, EOMI, accommodation nl, no face palsy, no dysarthria CN's II- XI intact bilaterally and moves all extremities Psychiatric: A+Ox3, euthymic affect Lymphatic: no cervical or axillary lymphadenopathy : deferred Discharge Data Allergies Allergy/AdvReac Type Severity Reaction Status Date / Time No Known Allergies Allergy Verified 10/01/22 14:13 Consultations 11/29/22 10:10 Consult Bottler Routine 11/29/22 10:32 Consult Cardiology Routine 11/30/22 09:37 Consult Gastroenterology Routine Procedures Performed Operation Date: 11/29/22 07:45 Actual Procedures p Aspiration/PCI w/TRINI for Stemi - Home Contreras MD s IVUS Coronary Single Vessel - Home Contreras MD s Cath, Left with Cors and Vent - Home Contreras MD s Cineradiography w/Routine Exam - Home Contreras MD Ordered Studies 11/29/22 06:35 CT chest diagnostic w con Stat 11/29/22 07:41 CL Cath Imgs for PACS use only Stat 12/02/22 07:44 US Kidney Bladder [US renal/blad retro comp] Routine 12/02/22 08:30 CL IVUS Coronary Single Vessel Routine Hospital Course (1) ST elevation (STEMI) myocardial infarction involving left anterior descending coronary artery: (2) CAD (coronary artery disease): (3) Hypertension: (4) Hyperlipidemia: (5) S/P cardiac catheterization: Presented to the ED with crushing chest pain. EKG showed new onset left bundle branch block Stat echo in the ED showed reduced EF of 30 to 35% along with large sized apical, segmental, anteroseptal, anterior and inferior wall abnormality with hypokinesis to akinesis of the segments. Patient underwent cardiac catheterization on 11/29/2022 sp stenting x 2 in the LAD and x1 in the distal circumflex Was admitted to ICU for closer monitoring No events on the telemetry since admission. Follow-up limited echo done on 12/02/2022 which shows similar ejection fraction; no LV thrombus. Plan; -Patient discharged home with LifeVest as recommended by cardiology. He was placed on dual antiplatelet agents with aspirin and Brilinta. He was also started on metoprolol. Losartan was initially started during the hospitalization. However, it was stopped due to GIOVANNA. Discussed with cardiology regarding losartan; patient to follow-up in cardiology clinic and will be evaluated for Entresto. His home medication Cardizem, lisinoprilhydrochlorothiazide stopped at discharge. Acute kidney injury Multifactorialcontrast-induced nephropathy, reduced EF and ARB Renal ultrasound did not show any hydronephrosis Creatinine down trended on the day of the discharge to 1.68. Patient to follow-up with his primary care doctor and repeat BMP. Bright red blood per rectum -Patient reports painless bright red blood per rectum. -Hemoglobin down trended. -GI was consulted; no further intervention for now. Patient was started on Protonix 40 mg once daily as she was placed on DAPT. Follow-up with primary care doctor for repeat CBC Total Time Total Time Spent Total Time Spent (In Minutes): 40 Total Time Includes: Examination of the Patient, Discharge Planning, Medication Reconciliation, Communication With Other Providers and Other Discharge Plan Discharge Items Patient Disposition: Home - Self-Care Reason For Visit: STEMI Discharge Diagnosis: STEMI Ischemic cardiomyopathy Heart failure with reduced ejection fraction. Condition on Discharge: Good Activity: Resume your previous activity Non-emergency contact: Primary Care Provider Call non-emergency contact if: you have any medication questions and your symptoms worsen Follow-up/Referrals: Ciro Santana MD [Primary Care Provider] - (Date & Time 12/09/2022 11:20 AM Provider Ciro Santana MD Department Family Medicine [facility] ) Diet: Regular Addtl Attending Provider Instructions: You were admitted to the hospital with heart attack. Cardiac catheterization was done in 3 stents were placed in your heart vessels. Your heart function(ejection fraction) is on the low due to the heart attack. Please wear the LifeVest as instructed. The following medication changes has been done: 1) stop taking Lipitor 10 mg, Cardizem and lisinoprilhydrochlorothiazide. 2) start taking aspirin 81 mg once daily, Brilinta 90 mg twice daily, Lipitor 40 mg once daily, metoprolol 25 mg twice daily and Protonix 40 mg once daily. 3) take nitroglycerin tablet as needed for chest pain. You will need to follow-up with her primary care doctor as instructed above. You will need to repeat BMP to follow-up on your kidney function. Please also obtain CBC to follow-up on the hemoglobin. Please follow-up with the cardiology. You will be called with appointment. Pending Studies at Discharge: No Stand-Alone Forms: [employer], Smoking Cessation Medications and DC Order Prescriptions: New Brilinta 90 mg Tablet 90 mg PO BID Qty: 60 0RF atorvastatin 40 mg Tablet 40 mg PO QAM Qty: 30 0RF aspirin 81 mg Tablet,Delayed Release (Dr/Ec) 81 mg PO QAM Qty: 30 0RF pantoprazole 40 mg Tablet,Delayed Release (Dr/Ec) 40 mg PO QAM Qty: 30 0RF nitroglycerin [Nitrostat] 0.4 mg Tablet, Sublingual 0.4 mg sublingual UD PRN (Reason: chest pain) Qty: 30 0RF metoprolol tartrate 25 mg Tablet 25 mg PO BID Qty: 30 0RF Continued pyridoxine (vitamin B6) 25 mg tablet 25 mg PO DAILY calcium carbonate 600 mg calcium (1,500 mg) Tablet 600 mg PO QAM cholecalciferol (vitamin D3) [Vitamin D3] 1,000 unit Capsule 1,000 unit PO QAM Centrum Silver 0.4-300-250 mg-mcg-mcg Tablet 1 tab PO QAM cyanocobalamin (vitamin B-12) [Vitamin B-12] 1,000 mcg Tablet 1,000 mcg PO DAILY ascorbic acid (vitamin C) [Vitamin C] 500 mg Capsule, Extended Release 500 mg PO DAILY zinc 50 mg Capsule 50 mg PO DAILY Discontinued diltiazem HCl 180 mg Capsule,Extended Release 24 Hr 180 mg PO QAM atorvastatin 10 mg Tablet 10 mg PO QAM lisinopril-hydrochlorothiazide 20-25 mg Tablet 1 tab PO QAM Discharge Orders: Discharge Order (Routine); Ordered 12/03/22 Ordered By: Sylvester Fagan Admission Data Admit Date/Time: 11/29/22 10:10 Attending Provider: Sylvester Fagan Admit Provider: Sylvester Fagan Primary Care Provider: Ciro Santana Other Providers: Anirudh Malave ; Emanuel Hunt ; Tariq Nye Jr
[2022-12-03 12:59] VITALS: BP 115/67
[2022-12-03 15:15] VITALS: PULSE 65
== END 2022-12-03 15:03 | disposition home or self-care (01) | DRG 247 ==
LOC: ED 05:18 → OR 08:09 → 1E 10:10